=== PATIENT | female | born 1945 | race Caucasian/White ===

== ENCOUNTER → 2016-08-01 | Outpatient (REF) | payer OTHER ==
[~2016-08-01] MED LIST: /PANT40TA; ACET50TAOT PO; ACET65TA; COLA100C2; COUM1TAB17 PO; FERROUS GLUCONATE; FIBERCON; METAMUCIL; METO10TA2; NUCY50TA9 PO; PANT40TA2 PO; POLY150C5 PO; PROT20TA11 PO; TYLE500T78 PO; XARE15TA PO
[2016-08-01 18:38] LABS: INR 1.89
== END ==
LOC: M LABDRAW1 16:07
PROVIDERS: ATTEND Physician Assistant Medical
DX: I82.432 Acute embolism and thrombosis of left popliteal vein (principal)

== ENCOUNTER → 2016-08-14 | Outpatient (CLI) | payer OTHER ==
--- NOTE | 2016-08-14 21:06 | REP ---
Clinical: Shortness of breath. Technique: PA and lateral. Comparison: 04/01/2016. Findings: Mediastinum and cardiac silhouette are stable. Moderate hiatal hernia is again identified. Incompletely evaluated rounded opacity at the medial right lung base adjacent to the right cardiac silhouette requires correlation. Lung alvarado demonstrate chronic-appearing changes without obvious acute consolidation, effusion, or pneumothorax. Skeletal structures demonstrate age-related changes. Impression: Chronic stable changes. Subtle rounded opacity at the medial right lung base cannot be excluded and requires correlation. The mediastinum again suggests moderate hiatal hernia. Signed by Foreign Fernández MD 08/14/2016 08:57 P
--- NOTE | 2016-08-15 08:47 | REP ---
Ventilation-perfusion lung scan: History: History of pulmonary embolus. Comparison CT pulmonary angiogram April 01, 2016. This showed no evidence of pulmonary embolism. The prior study from May 28, 2015 showed evidence of a saddle embolus. Comparison is also made with today's chest x-ray. Technique: 1.0 mCi technetium 99m DTPA aerosol is utilized for the ventilation study and is followed by a 5.5 mCi intravenous dose of technetium-99m MAA for the perfusion study. Eight planar images are acquired for each portion of the exam. Findings: Ventilation study shows some central bronchial deposition of tracer and swallowed tracer in the esophagus and stomach and in the patient's known hiatal hernia. Mildly patchy ventilatory uptake is seen. On the perfusion scan, there are mild matched defects on the posterior view in the upper lobes bilaterally. No mismatched defect is seen. Impression: Low probability scan for pulmonary embolism. Signed by Chuckie You MD 08/15/2016 09:28 A
== END ==
LOC: M RAD 13:40
PROVIDERS: ATTEND Internal Medicine Cardiovascular Disease
DX: R91.8 Other nonspecific abnormal finding of lung field (principal); K44.9 Diaphragmatic hernia without obstruction or gangrene; Z86.711 Personal history of pulmonary embolism

== ENCOUNTER 2016-08-16 10:52 | Emergency (ER) | payer OTHER ==
[2016-08-16 11:40] LABS: INR 2.39
--- NOTE | 2016-08-16 11:45 | REP ---
CT brain without contrast: History: Trauma. Comparison CT study January 14, 2013. Findings: Digital lateral laboratory clerk radiograph is unremarkable. Bone window settings show no evidence of skull fracture or bony destructive lesion. There is vascular calcification in the distal carotid arteries bilaterally. Visualized paranasal sinuses are clear. No intraorbital abnormality is seen. No significant scalp hematoma is appreciated. On soft tissue window settings, there is mild diffuse cerebral atrophy. There is no evidence of intracranial hemorrhage. No mass, infarction, contusion, extra-axial fluid collection, or midline shift is seen. Impression: Mild diffuse atrophy and vascular calcification. No acute intracranial abnormality. Signed by Chuckie You MD 08/16/2016 08:11 P
[2016-08-16 13:34] LABS: ANION GAP 7 MEQ/L (8-16); BLOOD UREA NITROGEN 15 MG/DL (7-18); CALCIUM LEVEL 9.1 MG/DL (8.8-10.2); CARBON DIOXIDE LEVEL 29 MEQ/L (21-32); CHLORIDE LEVEL 105 MEQ/L (98-107); CREATININE FOR GFR 0.94 MG/DL (0.55-1.02); GLOMERULAR FILTRATION RATE > 60.0 (>39); GLUCOSE, FASTING 106 MG/DL (83-110); POTASSIUM SERUM 4.2 MEQ/L (3.5-5.1); SODIUM LEVEL 141 MEQ/L (136-145)
[2016-08-16] MEDS ORDERED: ISOVUE-370 76% 100ML VIAL (Q9967) As Ordered ONE (13:41)
--- NOTE | 2016-08-16 15:08 | REP ---
CT PULMONARY ANGIOGRAM: With IV contrast. HISTORY: Dyspnea, history of pulmonary embolus. COMPARISON STUDIES: April 01, 2016. Contrast dose: 75 mL of Isovue [address] TECHNIQUE: Helical scanning is acquired and overlapping 1.5 mm and contiguous 3 mm axial images are reformatted. In addition, a 3D work station is deployed to generate thick slab maximum intensity projection images in sagittal and coronal imaging projections. CT PULMONARY ANGIOGRAPHIC FINDINGS: There is good opacification of the pulmonary arterial tree and there is no CT evidence of pulmonary embolism. Thoracic aorta enhances homogeneously and is normal in caliber and contour. Atherosclerotic calcifications are seen but no evidence of aneurysm or dissection is noted. No pleural or pericardial effusion is seen. A moderate to large size hiatal hernia is again noted. No hilar or mediastinal mass or adenopathy is seen. There are some calcific lymph node granulomatous residuals in the pretracheal soft tissues. No pulmonary nodule or mass lesion is seen. Maximal intensity projection images show no evidence to suggest an embolus. IMPRESSION: No CT evidence of pulmonary embolism. Moderate to large hiatal hernia. Otherwise no acute disease. Signed by Chuckie You MD 08/16/2016 08:13 P
--- NOTE | 2016-08-16 15:37 | EDDOCDS ---
Nurse's Notes [facility] Name: Nicole Paul Age: 71 yrs Sex: Female : 1945 Arrival Date: 08/16/2016 Time: 10:52 Bed 14 Private MD: Chloe Clements PA-C. Diagnosis: Dyspnea-CT negative for diagnostic pathology;Contusion of nose;Abrasion of nose Presentation: 08/16 10:58 Presenting complaint:. mlb1 11:03 Presenting complaint: Patient states: Mechanical fall going upstairs on Sunday jo3 afternoon. Struck face and forehead on deck. Swelling today is worse and pt became concerned. Pt on Coumadin regime at home. Adult Sepsis Screening: The patient does not have new or worsening altered mentation. Patient's respiratory rate is less than 22. Systolic blood pressure is greater than 100. Patient has a qSOFA score of 0- Negative Sepsis Screen. Suicide/Homicide risk assessment- the patient denies having any suicidal and/or homicidal ideations and does not present with any other emotional, behavioral or mental health complaints. 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 Transition of care: patient was not received from another setting of care. 11:03 Acuity: ROXI Level 3 jo3 11:03 Method Of Arrival: Walkin/Carried/Asstd jo3 Triage Assessment: 11:08 General: Appears in no apparent distress, comfortable, Behavior is appropriate for age, jo3 cooperative, pleasant. Historical: - Allergies: NSAIDS; - Home Meds: 1. Protonix 40 mg Oral TbEC 1 tab once daily 2. Coumadin 7mg Oral once daily 7mg , Sun, Sun, Sun. 6mg Mon, Sun, Sat for Pulmonary Thromboembolism - PMHx: GERD; Pulmonary Embolism; Bleeding Ulcers; Arthritis; - PSHx: left hip replacement; Hernia repair; Appendectomy; Hysterectomy; Cervical Fusion; Bladder suspension; Vulvectomy; Jugular Filter; - The history from nurses notes was reviewed: and I agree with what is documented. - Social history: Smoking status: Patient states former smoker of tobacco. No barriers to communication noted, The patient speaks fluent [place], Speaks appropriately for age. - : The pt / caregiver states he / she is on anticoagulants: coumadin. Home medication list is obtained from the patient. - Hospitalizations: : No recent hospitalization is reported. - Exposure Risk Screening:: None identified. - Immunization history:: All immunizations up-to-date. - Family history: Not pertinent. - Social history:: the patient is a former smoker, the patient does not drink alcohol. Screenin:01 Screening information is obtained from the patient. Fall risk: No risks identified. jo3 Assistance ADL's: requires no assistance with activities of daily living. Abuse/DV Screen: The patient / caregiver reports he/she is: not in a situation that causes fear, pain or injury. Nutritional screening: No deficits noted. Advance Directives: There is no active DNR order. home support is adequate. Assessment: 11:15 General: Appears in no apparent distress, comfortable, Behavior is appropriate for age, jo3 cooperative, pleasant. 11:15 Neurological: Level of Consciousness is awake, alert, Oriented to person, place, time. jo3 Neurological: Industrial Design Intern are equal bilaterally Moves all extremities. Gait is steady, Speech is normal, Facial symmetry appears normal, Pupils are PERRLA. Cardiovascular: No deficits noted. Respiratory: Airway is patent Respiratory effort is even, unlabored. Derm: Skin is pink, warm & dry. 12:15 Reassessment: Patient appears in no apparent distress at this time. No significant jo3 changes noted at this time. Awaiting results for disposition. Aware of plan of care . 13:15 Reassessment: Patient appears in no apparent distress at this time. General: Appears jo3 comfortable, Behavior is appropriate for age, cooperative, pleasant. General: SL placed for CT angio. Pt aware of plan of care . Neurological: No deficits noted. Respiratory: Airway is patent Respiratory effort is even, unlabored. 14:10 General: Appears in no apparent distress, comfortable, Behavior is appropriate for age, jo3 cooperative. Neurological: No deficits noted. Level of Consciousness is awake, alert, Oriented to person, place, time. Cardiovascular: No deficits noted. Respiratory: Airway is patent Respiratory effort is even, unlabored. 15:14 Reassessment: Patient appears in no apparent distress at this time. No changes noted at jo3 this time. Awaiting results for disposition. Aware of plan of care . Vital Signs: 10:53 BP 191 / 110; Pulse 83; Resp 18; Temp 98.0(O); Pulse Ox 97% on R/A; Weight 88.9 kg (R); elp Height 5 ft. 6 in. (167.64 cm) (R); Pain 3/10; 12:42 BP 168 / 81; Pulse 71; Resp 18; Temp 98.0(O); Pulse Ox 97% on R/A; Pain 0/10; nb2 15:21 BP 156 / 74 (auto/); Pulse 70; Resp 18; Temp 97.9(TE); Pulse Ox 98% on R/A; jo3 10:53 Body Mass Index 31.63 (88.90 kg, 167.64 cm) elp Vitals: 10:53 Log In Time: August 16, 2016 at 10:50. elp 10:55 RN notified that patient meets Red Flag criteria. elp ED Course: 10:53 Patient visited by Mary Zimmerman PCA. elp 10:53 Chloe Clements is Private Physician. elp 10:53 Patient moved to Waiting elp 10:55 Patient visited by Mary Zimmerman PCA. elp 10:55 Patient moved to 14 elp 10:57 Patient visited by Darrell Ponce RN. mlb1 11:05 Triage Initiated jo3 11:09 Patient visited by Lakeisha Freire RN. jo3 11:27 Tyree Shaw MD is Attending Physician. pc 11:42 Patient visited by Ben Moreno PCA. jlf 11:48 Patient visited by Tyree Shaw MD. pc 12:09 Patient visited by Lakeisha Freire RN. jo3 12:23 CT Head Without Contrast Returned. EDMS 12:42 Patient visited by Summer Arriaga. nb2 12:57 MED Profile Sent. jo3 12:59 Inserted saline lock: 18 gauge in left antecubital area. jo3 13:01 The patient / caregiver is instructed regarding the plan of care and ED course. jo3 13:02 Patient visited by Lakeisha Freire RN. jo3 13:30 Patient visited by Lakeisha Freire RN. jo3 14:06 Patient visited by Ben Moreno PCA. jlf 14:55 Patient visited by Ben Moreno PCA. jlf 15:04 Patient visited by Lakeisha Freire RN. jo3 15:15 Chloe Clements is Referral Physician. pc 15:15 Eren Ellis is Referral Physician. pc 15:15 Patient visited by Lakeisha Freire RN. jo3 15:21 Discontinued IV lock intact, bleeding controlled, pressure dressing applied, No jo3 redness/swelling at site. No procedures done that require assistance. 15:29 [facility] [place] was scanned into [employer] and attached to record. gjb Order Results: Lab Order: INR; SPEC'M 08/16/16 11:20 Test: PROTHROMBIN TIME; Value: 26.1; Range: 12.3-14.5; Abnormal: Above high normal; Units: SECONDS; Status: F Test: INR; Value: 2.39; Status: F Test Note: ; THERAPUTIC HUMAN INR VALUES INDICATIONS NORMAL RANGES PROPHYLAXIS/TREATMENT OF: VENOUS THROMBOSIS 2.0-3.0 PULMONARY EMBOLISM 2.0-3.0 PREVENTION OF SYSTEMIC EMBOLISM FROM: TISSUE HEART VALVES 2.0-3.0 ACUTE MYOCARDIAL INFARCTION 2.0-3.0 VALVULAR HEART DISEASE 2.0-3.0 ATRIAL FIBRILLATION 2.0-3.0 MECHANICAL VALVES(HIGH RISK) 2.5-3.5 RECURRENT MYOCARDIAL INFARCTION 2.5-3.5 Lab Order: MED Profile; SPEC'M 08/16/16 12:52 Test: GLUCOSE, FASTING; Value: 106; Range: 83-110; Units: MG/DL; Status: F Test: BLOOD UREA NITROGEN; Value: 15; Range: 7-18; Units: MG/DL; Status: F Test: CREATININE FOR GFR; Value: 0.94; Range: 0.55-1.02; Units: MG/DL; Status: F Test: GLOMERULAR FILTRATION RATE; Value: > 60.0; Range: >39; Status: F Test: SODIUM LEVEL; Value: 141; Range: 136-145; Units: MEQ/L; Status: F Test: POTASSIUM SERUM; Value: 4.2; Range: 3.5-5.1; Units: MEQ/L; Status: F Test: CHLORIDE LEVEL; Value: 105; Range: 98-107; Units: MEQ/L; Status: F Test: CARBON DIOXIDE LEVEL; Value: 29; Range: 21-32; Units: MEQ/L; Status: F Test: ANION GAP; Value: 7; Range: 8-16; Abnormal: Below low normal; Units: MEQ/L; Status: F Test: CALCIUM LEVEL; Value: 9.1; Range: 8.8-10.2; Units: MG/DL; Status: F Test Note: ; Units are mL/min/1.73 m2 Chronic Kidney Disease Staging per NKF: Stage I & II GFR >=60 Normal to Mildly Decreased Stage III GFR 30-59 Moderately Decreased Stage IV GFR 15-29 Severely Decreased Stage V GFR <15 Very Little GFR Left ESRD GFR <15 on [facility] Radiology Order: CT Head Without Contrast Test: CT Head Without Contrast REASON FOR EXAMINATION: Trauma; CT brain without contrast:; ; History: Trauma.; ; Comparison CT study January 14, 2013.; ; Findings: Digital lateral continuum of care manager radiograph is unremarkable. Bone window; settings show no evidence of skull fracture or bony destructive lesion. There is; vascular calcification in the distal carotid arteries bilaterally. Visualized; paranasal sinuses are clear. No intraorbital abnormality is seen. No; significant scalp hematoma is appreciated.; ; On soft tissue window settings, there is mild diffuse cerebral atrophy. There is; no evidence of intracranial hemorrhage. No mass, infarction, contusion,; extra-axial fluid collection, or midline shift is seen.; ; Impression:; ; Mild diffuse atrophy and vascular calcification. No acute intracranial; abnormality.; ; ; ; ; Unreviewed; Outcome: 15:15 Discharge ordered by Provider. 15:30 Discharge Assessment: Patient awake, alert and oriented x 3. No cognitive and/or jo3 functional deficits noted. Patient verbalized understanding of disposition instructions. patient administered narcotics - no. The following High Risk Discharge criteria are identified: None. Discharged to home ambulatory, with family. Condition: stable. Discharge instructions given to patient, Instructed on discharge instructions, follow up and referral plans. Demonstrated understanding of instructions, Pt was receptive of discharge instructions/ teaching. CT Study completed. Property sent home with patient. 15:36 Patient left the ED. jo3 Signatures: Dispatcher [employer] EDMS Tyree Shaw MD MD pc Barney, Michael B RN RN mlb1 Lakeisha Freire RN RN jo3 Mary Zimmerman, FIRE WATCHER FIRE WATCHER Ben Mclaughlin, FIRE WATCHER FIRE WATCHER jlf Franco, Nargis gjb Baart, Summer nb2 Corrections: (The following items were deleted from the chart) 12:09 12:08 General: Appears jo3 jo3 MTDD
--- NOTE | 2016-08-16 15:37 | EDDOCDS ---
Physician Documentation [facility] Name: Nicole Paul Age: 71 yrs Sex: Female : 1945 Arrival Date: 08/16/2016 Time: 10:52 Bed 14 Private MD: Chloe Clements PA-C. Disposition: 08/16 15:13 Critical Care: Critical care not applicable. pc Disposition: 08/16/16 15:15 Discharged to Home/Self Care. Impression: Dyspnea - CT negative for diagnostic pathology, Contusion of nose, Abrasion of nose. - Condition is Stable. - Discharge Instructions: Contusion, Shortness of Breath. - Medication Reconciliation, Local Pharmacy Hours form. - Follow up: Chloe Clements; When: As previously arranged; Reason: Recheck today's complaints, Continuance of care. Follow up: Eren Ellis; When: Call to arrange an appointment; Reason: To establish care. - Problem is new. - Symptoms have improved. HPI: 12:22 This 71 yrs old Female presents to ER via Walkin/Carried/Asstd with pc complaints of Fall Injury. 12:22 The history is obtained from the patient. She slipped on icy steps 2 days ago, striking pc her nose on the steps. She is on Coumadin for a PE from 2014. She denies any LOC and only decided to come today because her left upper eyelid was swollen. 12:27 The patient has not experienced similar symptoms in the past. The patient has been pc recently seen by a wastewater treatment supervisor. Historical: - Allergies: NSAIDS; - Home Meds: 1. Protonix 40 mg Oral TbEC 1 tab once daily 2. Coumadin 7mg Oral once daily 7mg , Sun, Sun, Sun. 6mg Mon, Wed, Sat for Pulmonary Thromboembolism - PMHx: GERD; Pulmonary Embolism; Bleeding Ulcers; Arthritis; - PSHx: left hip replacement; Hernia repair; Appendectomy; Hysterectomy; Cervical Fusion; Bladder suspension; Vulvectomy; Jugular Filter; - The history from nurses notes was reviewed: and I agree with what is documented. - Social history: Smoking status: Patient states former smoker of tobacco. No barriers to communication noted, The patient speaks fluent Beninese, Speaks appropriately for age. - : The pt / caregiver states he / she is on anticoagulants: coumadin. Home medication list is obtained from the patient. - Hospitalizations: : No recent hospitalization is reported. - Exposure Risk Screening:: None identified. - Immunization history:: All immunizations up-to-date. - Family history: Not pertinent. - Social history:: the patient is a former smoker, the patient does not drink alcohol. ROS: 12:27 CVS/Resp: She has had SOB for many months to one year, following a PE in 2014. pc She has had negative CTs and VQs in the past 3 months. She had a stress test done 2 weeks ago that, per Dr. Barrera who was contacted, was completely normal and she had an EF of 80%. 12:27 All systems are negative except as listed. Exam: 12:27 General Appearance: no acute distress, alert. pc 12:27 EENT: healing laceration/abrasion to bridge of nose without bony pain. There is gravitational swelling to right and left inner canthus. No nasal septal hematoma. No maxillary pain. 12:27 Neck: The exam reveals no acute abnormalities. ROM is normal and painless. No nuchal rigidity is noted.. Nexus criteria for suspected c-spine injury is negative. 12:27 Respiratory: no respiratory distress, normal breath sounds, chest non-tender. 12:27 CVS: regular pulse rate, regular rhythm, normal S1 and S2, no murmurs, strong peripheral pulses. 12:27 Abdomen: soft, non-tender, no organomegaly, normal bowel sounds. 12:27 Back: normal inspection. 12:27 Skin: skin color is normal, warm, dry. 12:27 Extremities: The extremities have a grossly normal appearance, are non-tender, without acute ROM abnormalities. 12:27 Neuro: oriented x 3, cranial nerves normal as tested, no motor deficits, no sensory deficits. Vital Signs: 10:53 BP 191 / 110; Pulse 83; Resp 18; Temp 98.0(O); Pulse Ox 97% on R/A; Weight 88.9 kg / elp 195.99 lbs (R); Height 5 ft. 6 in. (167.64 cm) (R); Pain 3/10; 12:42 BP 168 / 81; Pulse 71; Resp 18; Temp 98.0(O); Pulse Ox 97% on R/A; Pain 0/10; nb2 15:21 BP 156 / 74 (auto/); Pulse 70; Resp 18; Temp 97.9(TE); Pulse Ox 98% on R/A; jo3 10:53 Body Mass Index 31.63 (88.90 kg, 167.64 cm) elp MDM: 11:11 CT Head Without Contrast Ordered. EDMS 11:12 INR Ordered. EDMS 11:48 INR Reviewed. pc 12:27 Differential Diagnosis: HI on Coumadin; nasal contusion and abrasion; chronic dyspnea pc with normal vitals and exam in a former smoker. Plan: CT, labs. Data reviewed: old medical records, vital signs, nurses notes, lab test results, all radiology studies and available results. Test interpretation: LAB - all labs as ordered have been reviewed, interpreted and considered in the overall management of the clinical presentation; interpreted by Radiologist and personally reviewed, Head CT; no acute disease. The patient has been re-examined and re-evaluated. The clinical presentation did not require any ED treatment or interventions. Physician consultation: Dr. Reinier Barrera regarding patient's condition, and he relayed the stress test results as documented above. 12:38 IV Saline Lock ordered. pc 12:39 MED Profile Ordered. EDMS 12:39 CT Chest Angio R/O PE Ordered. EDMS 13:36 MED Profile Reviewed. pc 13:36 CT Head Without Contrast Reviewed. pc 15:13 Test interpretation: interpreted by Radiologist and personally reviewed, Chest CT; pc large hiatal hernia, else nad. Disposition: The historical points, examination findings, and any diagnostic results supporting the provided diagnosis, were discussed with the patient or legal guardian. The need for outpatient follow up with the provider listed on their discharge instructions was discussed. They were encouraged to return to [facility], or the nearest ED, if symptoms worsen/persist, or for any other questions/concerns. 15:17 Financial registration complete. luke 15:29 [facility] [place] Agreement was scanned into [employer] and attached to record. luke Signatures: Dispatcher [employer] EDMO Tyree Shaw MD MD pc Helmerci, Jennifer, RN RN Nargis Flanagan The chart was reviewed and I authenticate all verbal orders and agree with the evaluation and treatment provided.Corrections: (The following items were deleted from the chart) 12:28 12:22 She slipped on icy steps 2 days ago, striking her nose on the steps. She is on pc Coumadin for a PE from 2014. She denies any LOC and only decided to come today because pc Attachments: 15:29 [facility] Payment Agreement luke MTDD
--- NOTE | 2016-08-18 16:37 | EDDOCDS ---
Physician Documentation [facility] Name: Nicole Paul Age: 71 yrs Sex: Female : 1945 Arrival Date: 08/16/2016 Time: 10:52 Bed 14 Private MD: Chloe Clements PA-C. Disposition: 08/16 15:13 Critical Care: Critical care not applicable. pc Disposition: 08/16/16 15:15 Discharged to Home/Self Care. Impression: Dyspnea - CT negative for diagnostic pathology, Contusion of nose, Abrasion of nose. - Condition is Stable. - Discharge Instructions: Contusion, Shortness of Breath. - Medication Reconciliation, Local Pharmacy Hours form. - Follow up: Chloe Clements; When: As previously arranged; Reason: Recheck today's complaints, Continuance of care. Follow up: Eren Ellis; When: Call to arrange an appointment; Reason: To establish care. - Problem is new. - Symptoms have improved. HPI: 12:22 This 71 yrs old Female presents to ER via Walkin/Carried/Asstd with pc complaints of Fall Injury. 12:22 The history is obtained from the patient. She slipped on icy steps 2 days ago, striking pc her nose on the steps. She is on Coumadin for a PE from 2014. She denies any LOC and only decided to come today because her left upper eyelid was swollen. 12:27 The patient has not experienced similar symptoms in the past. The patient has been pc recently seen by a head counselor. Historical: - Allergies: NSAIDS; - Home Meds: 1. Protonix 40 mg Oral TbEC 1 tab once daily 2. Coumadin 7mg Oral once daily 7mg , Sun, Sun, Sun. 6mg Mon, Wed, Sat for Pulmonary Thromboembolism - PMHx: GERD; Pulmonary Embolism; Bleeding Ulcers; Arthritis; - PSHx: left hip replacement; Hernia repair; Appendectomy; Hysterectomy; Cervical Fusion; Bladder suspension; Vulvectomy; Jugular Filter; - The history from nurses notes was reviewed: and I agree with what is documented. - Social history: Smoking status: Patient states former smoker of tobacco. No barriers to communication noted, The patient speaks fluent Estonian, Speaks appropriately for age. - : The pt / caregiver states he / she is on anticoagulants: coumadin. Home medication list is obtained from the patient. - Hospitalizations: : No recent hospitalization is reported. - Exposure Risk Screening:: None identified. - Immunization history:: All immunizations up-to-date. - Family history: Not pertinent. - Social history:: the patient is a former smoker, the patient does not drink alcohol. ROS: 12:27 CVS/Resp: She has had SOB for many months to one year, following a PE in 2014. pc She has had negative CTs and VQs in the past 3 months. She had a stress test done 2 weeks ago that, per Dr. Barrera who was contacted, was completely normal and she had an EF of 80%. 12:27 All systems are negative except as listed. Exam: 12:27 General Appearance: no acute distress, alert. pc 12:27 EENT: healing laceration/abrasion to bridge of nose without bony pain. There is gravitational swelling to right and left inner canthus. No nasal septal hematoma. No maxillary pain. 12:27 Neck: The exam reveals no acute abnormalities. ROM is normal and painless. No nuchal rigidity is noted.. Nexus criteria for suspected c-spine injury is negative. 12:27 Respiratory: no respiratory distress, normal breath sounds, chest non-tender. 12:27 CVS: regular pulse rate, regular rhythm, normal S1 and S2, no murmurs, strong peripheral pulses. 12:27 Abdomen: soft, non-tender, no organomegaly, normal bowel sounds. 12:27 Back: normal inspection. 12:27 Skin: skin color is normal, warm, dry. 12:27 Extremities: The extremities have a grossly normal appearance, are non-tender, without acute ROM abnormalities. 12:27 Neuro: oriented x 3, cranial nerves normal as tested, no motor deficits, no sensory deficits. Vital Signs: 10:53 BP 191 / 110; Pulse 83; Resp 18; Temp 98.0(O); Pulse Ox 97% on R/A; Weight 88.9 kg / elp 195.99 lbs (R); Height 5 ft. 6 in. (167.64 cm) (R); Pain 3/10; 12:42 BP 168 / 81; Pulse 71; Resp 18; Temp 98.0(O); Pulse Ox 97% on R/A; Pain 0/10; nb2 15:21 BP 156 / 74 (auto/); Pulse 70; Resp 18; Temp 97.9(TE); Pulse Ox 98% on R/A; jo3 10:53 Body Mass Index 31.63 (88.90 kg, 167.64 cm) elp MDM: 11:11 CT Head Without Contrast Ordered. EDMS 11:12 INR Ordered. EDMS 11:48 INR Reviewed. pc 12:27 Differential Diagnosis: HI on Coumadin; nasal contusion and abrasion; chronic dyspnea pc with normal vitals and exam in a former smoker. Plan: CT, labs. Data reviewed: old medical records, vital signs, nurses notes, lab test results, all radiology studies and available results. Test interpretation: LAB - all labs as ordered have been reviewed, interpreted and considered in the overall management of the clinical presentation; interpreted by Radiologist and personally reviewed, Head CT; no acute disease. The patient has been re-examined and re-evaluated. The clinical presentation did not require any ED treatment or interventions. Physician consultation: Dr. Reinier Barrera regarding patient's condition, and he relayed the stress test results as documented above. 12:38 IV Saline Lock ordered. pc 12:39 MED Profile Ordered. EDMS 12:39 CT Chest Angio R/O PE Ordered. EDMS 13:36 MED Profile Reviewed. pc 13:36 CT Head Without Contrast Reviewed. pc 15:13 Test interpretation: interpreted by Radiologist and personally reviewed, Chest CT; pc large hiatal hernia, else nad. Disposition: The historical points, examination findings, and any diagnostic results supporting the provided diagnosis, were discussed with the patient or legal guardian. The need for outpatient follow up with the provider listed on their discharge instructions was discussed. They were encouraged to return to [facility], or the nearest ED, if symptoms worsen/persist, or for any other questions/concerns. 15:17 Financial registration complete. luke 15:29 [place] [place] Agreement was scanned into [employer] and attached to record. luke Signatures: Dispatcher [employer] EDVA Tyree Shaw MD MD pc Helmerci, Jennifer, RN RN Nargis Flanagan The chart was reviewed and I authenticate all verbal orders and agree with the evaluation and treatment provided.Corrections: (The following items were deleted from the chart) 12:28 12:22 She slipped on icy steps 2 days ago, striking her nose on the steps. She is on pc Coumadin for a PE from 2014. She denies any LOC and only decided to come today because pc Attachments: 15:29 [facility] Payment Agreement luke Chart Complete MTDD
--- NOTE | 2016-08-18 16:37 | EDDOCDS ---
Nurse's Notes [facility] Name: Nicoel Paul Age: 71 yrs Sex: Female : 1945 Arrival Date: 08/16/2016 Time: 10:52 Bed 14 Private MD: Chloe Clements PA-C. Diagnosis: Dyspnea-CT negative for diagnostic pathology;Contusion of nose;Abrasion of nose Presentation: 08/16 10:58 Presenting complaint:. mlb1 11:03 Presenting complaint: Patient states: Mechanical fall going upstairs on Sunday jo3 afternoon. Struck face and forehead on deck. Swelling today is worse and pt became concerned. Pt on Coumadin regime at home. Adult Sepsis Screening: The patient does not have new or worsening altered mentation. Patient's respiratory rate is less than 22. Systolic blood pressure is greater than 100. Patient has a qSOFA score of 0- Negative Sepsis Screen. Suicide/Homicide risk assessment- the patient denies having any suicidal and/or homicidal ideations and does not present with any other emotional, behavioral or mental health complaints. Status: Patient is not a director of casework services or dependent. Transition of care: patient was not received from another setting of care. 11:03 Acuity: ROXI Level 3 jo3 11:03 Method Of Arrival: Walkin/Carried/Asstd jo3 Triage Assessment: 11:08 General: Appears in no apparent distress, comfortable, Behavior is appropriate for age, jo3 cooperative, pleasant. Historical: - Allergies: NSAIDS; - Home Meds: 1. Protonix 40 mg Oral TbEC 1 tab once daily 2. Coumadin 7mg Oral once daily 7mg , Sun, Sun, Sun. 6mg Mon, Sun, Sat for Pulmonary Thromboembolism - PMHx: GERD; Pulmonary Embolism; Bleeding Ulcers; Arthritis; - PSHx: left hip replacement; Hernia repair; Appendectomy; Hysterectomy; Cervical Fusion; Bladder suspension; Vulvectomy; Jugular Filter; - The history from nurses notes was reviewed: and I agree with what is documented. - Social history: Smoking status: Patient states former smoker of tobacco. No barriers to communication noted, The patient speaks fluent Serbian, Speaks appropriately for age. - : The pt / caregiver states he / she is on anticoagulants: coumadin. Home medication list is obtained from the patient. - Hospitalizations: : No recent hospitalization is reported. - Exposure Risk Screening:: None identified. - Immunization history:: All immunizations up-to-date. - Family history: Not pertinent. - Social history:: the patient is a former smoker, the patient does not drink alcohol. Screenin:01 Screening information is obtained from the patient. Fall risk: No risks identified. jo3 Assistance ADL's: requires no assistance with activities of daily living. Abuse/DV Screen: The patient / caregiver reports he/she is: not in a situation that causes fear, pain or injury. Nutritional screening: No deficits noted. Advance Directives: There is no active DNR order. home support is adequate. Assessment: 11:15 General: Appears in no apparent distress, comfortable, Behavior is appropriate for age, jo3 cooperative, pleasant. 11:15 Neurological: Level of Consciousness is awake, alert, Oriented to person, place, time. jo3 Neurological: Placing Judge are equal bilaterally Moves all extremities. Gait is steady, Speech is normal, Facial symmetry appears normal, Pupils are PERRLA. Cardiovascular: No deficits noted. Respiratory: Airway is patent Respiratory effort is even, unlabored. Derm: Skin is pink, warm & dry. 12:15 Reassessment: Patient appears in no apparent distress at this time. No significant jo3 changes noted at this time. Awaiting results for disposition. Aware of plan of care . 13:15 Reassessment: Patient appears in no apparent distress at this time. General: Appears jo3 comfortable, Behavior is appropriate for age, cooperative, pleasant. General: SL placed for CT angio. Pt aware of plan of care . Neurological: No deficits noted. Respiratory: Airway is patent Respiratory effort is even, unlabored. 14:10 General: Appears in no apparent distress, comfortable, Behavior is appropriate for age, jo3 cooperative. Neurological: No deficits noted. Level of Consciousness is awake, alert, Oriented to person, place, time. Cardiovascular: No deficits noted. Respiratory: Airway is patent Respiratory effort is even, unlabored. 15:14 Reassessment: Patient appears in no apparent distress at this time. No changes noted at jo3 this time. Awaiting results for disposition. Aware of plan of care . Vital Signs: 10:53 BP 191 / 110; Pulse 83; Resp 18; Temp 98.0(O); Pulse Ox 97% on R/A; Weight 88.9 kg (R); elp Height 5 ft. 6 in. (167.64 cm) (R); Pain 3/10; 12:42 BP 168 / 81; Pulse 71; Resp 18; Temp 98.0(O); Pulse Ox 97% on R/A; Pain 0/10; nb2 15:21 BP 156 / 74 (auto/); Pulse 70; Resp 18; Temp 97.9(TE); Pulse Ox 98% on R/A; jo3 10:53 Body Mass Index 31.63 (88.90 kg, 167.64 cm) elp Vitals: 10:53 Log In Time: August 16, 2016 at 10:50. elp 10:55 RN notified that patient meets Red Flag criteria. elp ED Course: 10:53 Patient visited by Mary Zimmerman PCA. elp 10:53 Chloe Clements is Private Physician. elp 10:53 Patient moved to Waiting elp 10:55 Patient visited by Mary Zimmerman PCA. elp 10:55 Patient moved to 14 elp 10:57 Patient visited by Darrell Ponce RN. mlb1 11:05 Triage Initiated jo3 11:09 Patient visited by Lakeisha Freire RN. jo3 11:27 Tyree Shaw MD is Attending Physician. pc 11:42 Patient visited by Ben Moreno PCA. jlf 11:48 Patient visited by Tyree Shaw MD. pc 12:09 Patient visited by Lakeisha Freire RN. jo3 12:23 CT Head Without Contrast Returned. EDMS 12:42 Patient visited by Summer Arriaga. nb2 12:57 MED Profile Sent. jo3 12:59 Inserted saline lock: 18 gauge in left antecubital area. jo3 13:01 The patient / caregiver is instructed regarding the plan of care and ED course. jo3 13:02 Patient visited by Lakeisha Freire RN. jo3 13:30 Patient visited by Lakeisha Freire RN. jo3 14:06 Patient visited by Ben Moreno PCA. jlf 14:55 Patient visited by Ben Moreno PCA. jlf 15:04 Patient visited by Lakeisha Freire RN. jo3 15:15 Chloe Clements is Referral Physician. pc 15:15 Eren Ellis is Referral Physician. pc 15:15 Patient visited by Lakeisha Freire RN. jo3 15:21 Discontinued IV lock intact, bleeding controlled, pressure dressing applied, No jo3 redness/swelling at site. No procedures done that require assistance. 15:29 [facility] [place] Payment Agreement was scanned into [employer] and attached to record. gjb 15:54 CT Chest Angio R/O PE Returned. EDMS 20:41 CT Head Without Contrast Returned. EDMS Order Results: Lab Order: INR; SPEC'M 08/16/16 11:20 Test: PROTHROMBIN TIME; Value: 26.1; Range: 12.3-14.5; Abnormal: Above high normal; Units: SECONDS; Status: F Test: INR; Value: 2.39; Status: F Test Note: ; THERAPUTIC HUMAN INR VALUES INDICATIONS NORMAL RANGES PROPHYLAXIS/TREATMENT OF: VENOUS THROMBOSIS 2.0-3.0 PULMONARY EMBOLISM 2.0-3.0 PREVENTION OF SYSTEMIC EMBOLISM FROM: TISSUE HEART VALVES 2.0-3.0 ACUTE MYOCARDIAL INFARCTION 2.0-3.0 VALVULAR HEART DISEASE 2.0-3.0 ATRIAL FIBRILLATION 2.0-3.0 MECHANICAL VALVES(HIGH RISK) 2.5-3.5 RECURRENT MYOCARDIAL INFARCTION 2.5-3.5 Lab Order: MED Profile; SPEC'M 08/16/16 12:52 Test: GLUCOSE, FASTING; Value: 106; Range: 83-110; Units: MG/DL; Status: F Test: BLOOD UREA NITROGEN; Value: 15; Range: 7-18; Units: MG/DL; Status: F Test: CREATININE FOR GFR; Value: 0.94; Range: 0.55-1.02; Units: MG/DL; Status: F Test: GLOMERULAR FILTRATION RATE; Value: > 60.0; Range: >39; Status: F Test: SODIUM LEVEL; Value: 141; Range: 136-145; Units: MEQ/L; Status: F Test: POTASSIUM SERUM; Value: 4.2; Range: 3.5-5.1; Units: MEQ/L; Status: F Test: CHLORIDE LEVEL; Value: 105; Range: 98-107; Units: MEQ/L; Status: F Test: CARBON DIOXIDE LEVEL; Value: 29; Range: 21-32; Units: MEQ/L; Status: F Test: ANION GAP; Value: 7; Range: 8-16; Abnormal: Below low normal; Units: MEQ/L; Status: F Test: CALCIUM LEVEL; Value: 9.1; Range: 8.8-10.2; Units: MG/DL; Status: F Test Note: ; Units are mL/min/1.73 m2 Chronic Kidney Disease Staging per NKF: Stage I & II GFR >=60 Normal to Mildly Decreased Stage III GFR 30-59 Moderately Decreased Stage IV GFR 15-29 Severely Decreased Stage V GFR <15 Very Little GFR Left ESRD GFR <15 on METAL MOULDER'S ASSISTANT Radiology Order: CT Head Without Contrast Test: CT Head Without Contrast REASON FOR EXAMINATION: Trauma; CT brain without contrast:; ; History: Trauma.; ; Comparison CT study January 14, 2013.; ; Findings: Digital lateral commission clerk radiograph is unremarkable. Bone window; settings show no evidence of skull fracture or bony destructive lesion. There is; vascular calcification in the distal carotid arteries bilaterally. Visualized; paranasal sinuses are clear. No intraorbital abnormality is seen. No; significant scalp hematoma is appreciated.; ; On soft tissue window settings, there is mild diffuse cerebral atrophy. There is; no evidence of intracranial hemorrhage. No mass, infarction, contusion,; extra-axial fluid collection, or midline shift is seen.; ; Impression:; ; Mild diffuse atrophy and vascular calcification. No acute intracranial; abnormality.; ; ; Signed by; Chuckie You MD 08/16/2016 08:11 P; Radiology Order: CT Chest Angio R/O PE Test: CT Chest Angio R/O PE REASON FOR EXAMINATION: dyspnea, hx of PE; CT PULMONARY ANGIOGRAM:; ; With IV contrast.; ; HISTORY: Dyspnea, history of pulmonary embolus.; ; COMPARISON STUDIES: April 01, 2016.; ; Contrast dose: 75 mL of Isovue 370 are administered intravenously.; ; CT TECHNIQUE: Helical scanning is acquired and overlapping 1.5 mm and contiguous; 3 mm axial images are reformatted. In addition, a 3D work station is deployed to; generate thick slab maximum intensity projection images in sagittal and coronal; imaging projections.; ; CT PULMONARY ANGIOGRAPHIC FINDINGS: There is good opacification of the pulmonary; arterial tree and there is no CT evidence of pulmonary embolism. Thoracic aorta; enhances homogeneously and is normal in caliber and contour. Atherosclerotic; calcifications are seen but no evidence of aneurysm or dissection is noted. No; pleural or pericardial effusion is seen. A moderate to large size hiatal hernia; is again noted. No hilar or mediastinal mass or adenopathy is seen. There are; some calcific lymph node granulomatous residuals in the pretracheal soft tissues.; No pulmonary nodule or mass lesion is seen. Maximal intensity projection images; show no evidence to suggest an embolus.; ; IMPRESSION: No CT evidence of pulmonary embolism. Moderate to large hiatal; hernia. Otherwise no acute disease.; ; ; Signed by; Chuckie You MD 08/16/2016 08:13 P; Outcome: 15:15 Discharge ordered by Provider. pc 15:30 Discharge Assessment: Patient awake, alert and oriented x 3. No cognitive and/or jo3 functional deficits noted. Patient verbalized understanding of disposition instructions. patient administered narcotics - no. The following High Risk Discharge criteria are identified: None. Discharged to home ambulatory, with family. Condition: stable. Discharge instructions given to patient, Instructed on discharge instructions, follow up and referral plans. Demonstrated understanding of instructions, Pt was receptive of discharge instructions/ teaching. CT Study completed. Property sent home with patient. 15:36 Patient left the ED. jo3 Signatures: Dispatcher [employer] EDMS Tyree Shaw MD MD pc Barney, Michael B RN RN mlLakeisha Thakkar RN RN jo3 Mary Zimmerman, PROMOTIONS INTERN PROMOTIONS INTERN Ben Mclaughlin, PROMOTIONS INTERN PROMOTIONS INTERN Nargis Garcia Nicole nb2 Corrections: (The following items were deleted from the chart) 12:09 12:08 General: Appears jo3 jo3 Chart Complete MTDD
--- NOTE | 2016-08-18 16:37 | EDDOCDS ---
Physician Documentation [facility] Name: Nicole Paul Age: 71 yrs Sex: Female : 1945 Arrival Date: 08/16/2016 Time: 10:52 Bed 14 Private MD: Chloe Clements PA-C. Disposition: 08/16 15:13 Critical Care: Critical care not applicable. pc Disposition: 08/16/16 15:15 Discharged to Home/Self Care. Impression: Dyspnea - CT negative for diagnostic pathology, Contusion of nose, Abrasion of nose. - Condition is Stable. - Discharge Instructions: Contusion, Shortness of Breath. - Medication Reconciliation, Local Pharmacy Hours form. - Follow up: Chloe Clements; When: As previously arranged; Reason: Recheck today's complaints, Continuance of care. Follow up: Eren Ellis; When: Call to arrange an appointment; Reason: To establish care. - Problem is new. - Symptoms have improved. HPI: 12:22 This 71 yrs old Female presents to ER via Walkin/Carried/Asstd with pc complaints of Fall Injury. 12:22 The history is obtained from the patient. She slipped on icy steps 2 days ago, striking pc her nose on the steps. She is on Coumadin for a PE from 2014. She denies any LOC and only decided to come today because her left upper eyelid was swollen. 12:27 The patient has not experienced similar symptoms in the past. The patient has been pc recently seen by a refund clerk. Historical: - Allergies: NSAIDS; - Home Meds: 1. Protonix 40 mg Oral TbEC 1 tab once daily 2. Coumadin 7mg Oral once daily 7mg , Sun, Sun, Sun. 6mg Mon, Wed, Sat for Pulmonary Thromboembolism - PMHx: GERD; Pulmonary Embolism; Bleeding Ulcers; Arthritis; - PSHx: left hip replacement; Hernia repair; Appendectomy; Hysterectomy; Cervical Fusion; Bladder suspension; Vulvectomy; Jugular Filter; - The history from nurses notes was reviewed: and I agree with what is documented. - Social history: Smoking status: Patient states former smoker of tobacco. No barriers to communication noted, The patient speaks fluent Tajik, Speaks appropriately for age. - : The pt / caregiver states he / she is on anticoagulants: coumadin. Home medication list is obtained from the patient. - Hospitalizations: : No recent hospitalization is reported. - Exposure Risk Screening:: None identified. - Immunization history:: All immunizations up-to-date. - Family history: Not pertinent. - Social history:: the patient is a former smoker, the patient does not drink alcohol. ROS: 12:27 CVS/Resp: She has had SOB for many months to one year, following a PE in 2014. pc She has had negative CTs and VQs in the past 3 months. She had a stress test done 2 weeks ago that, per Dr. Barrera who was contacted, was completely normal and she had an EF of 80%. 12:27 All systems are negative except as listed. Exam: 12:27 General Appearance: no acute distress, alert. pc 12:27 EENT: healing laceration/abrasion to bridge of nose without bony pain. There is gravitational swelling to right and left inner canthus. No nasal septal hematoma. No maxillary pain. 12:27 Neck: The exam reveals no acute abnormalities. ROM is normal and painless. No nuchal rigidity is noted.. Nexus criteria for suspected c-spine injury is negative. 12:27 Respiratory: no respiratory distress, normal breath sounds, chest non-tender. 12:27 CVS: regular pulse rate, regular rhythm, normal S1 and S2, no murmurs, strong peripheral pulses. 12:27 Abdomen: soft, non-tender, no organomegaly, normal bowel sounds. 12:27 Back: normal inspection. 12:27 Skin: skin color is normal, warm, dry. 12:27 Extremities: The extremities have a grossly normal appearance, are non-tender, without acute ROM abnormalities. 12:27 Neuro: oriented x 3, cranial nerves normal as tested, no motor deficits, no sensory deficits. Vital Signs: 10:53 BP 191 / 110; Pulse 83; Resp 18; Temp 98.0(O); Pulse Ox 97% on R/A; Weight 88.9 kg / elp 195.99 lbs (R); Height 5 ft. 6 in. (167.64 cm) (R); Pain 3/10; 12:42 BP 168 / 81; Pulse 71; Resp 18; Temp 98.0(O); Pulse Ox 97% on R/A; Pain 0/10; nb2 15:21 BP 156 / 74 (auto/); Pulse 70; Resp 18; Temp 97.9(TE); Pulse Ox 98% on R/A; jo3 10:53 Body Mass Index 31.63 (88.90 kg, 167.64 cm) elp MDM: 11:11 CT Head Without Contrast Ordered. EDMS 11:12 INR Ordered. EDMS 11:48 INR Reviewed. pc 12:27 Differential Diagnosis: HI on Coumadin; nasal contusion and abrasion; chronic dyspnea pc with normal vitals and exam in a former smoker. Plan: CT, labs. Data reviewed: old medical records, vital signs, nurses notes, lab test results, all radiology studies and available results. Test interpretation: LAB - all labs as ordered have been reviewed, interpreted and considered in the overall management of the clinical presentation; interpreted by Radiologist and personally reviewed, Head CT; no acute disease. The patient has been re-examined and re-evaluated. The clinical presentation did not require any ED treatment or interventions. Physician consultation: Dr. Reinier Barrera regarding patient's condition, and he relayed the stress test results as documented above. 12:38 IV Saline Lock ordered. pc 12:39 MED Profile Ordered. EDMS 12:39 CT Chest Angio R/O PE Ordered. EDMS 13:36 MED Profile Reviewed. pc 13:36 CT Head Without Contrast Reviewed. pc 15:13 Test interpretation: interpreted by Radiologist and personally reviewed, Chest CT; pc large hiatal hernia, else nad. Disposition: The historical points, examination findings, and any diagnostic results supporting the provided diagnosis, were discussed with the patient or legal guardian. The need for outpatient follow up with the provider listed on their discharge instructions was discussed. They were encouraged to return to [facility], or the nearest ED, if symptoms worsen/persist, or for any other questions/concerns. 15:17 Financial registration complete. luke 15:29 [facility] [place], [place] Payment Agreement was scanned into [employer] and attached to record. luke Signatures: Dispatcher [employer] EDMT Tyree Shaw MD MD pc Helmerci, Jennifer, RN RN Nargis Flanagan The chart was reviewed and I authenticate all verbal orders and agree with the evaluation and treatment provided.Corrections: (The following items were deleted from the chart) 12:28 12:22 She slipped on icy steps 2 days ago, striking her nose on the steps. She is on pc Coumadin for a PE from 2014. She denies any LOC and only decided to come today because pc Attachments: 15:29 [facility] Payment Agreement luke Chart Complete MTDD
== END 2016-08-16 15:36 | disposition home or self-care (01) ==
LOC: M ED 10:52
DX: S00.31XA Abrasion of nose, initial encounter (principal); W00.1XXA Fall from stairs and steps due to ice and snow, initial encounter; Y92.89 Other specified places as the place of occurrence of the external cause; Y93.89 Activity, other specified; Y99.8 Other external cause status; R06.00 Dyspnea, unspecified; K21.9 Gastro-esophageal reflux disease without esophagitis; M19.90 Unspecified osteoarthritis, unspecified site; K27.4 Chronic or unspecified peptic ulcer, site unspecified, with hemorrhage; Z86.711 Personal history of pulmonary embolism; Z79.899 Other long term (current) drug therapy; Z79.01 Long term (current) use of anticoagulants; Z88.6 Allergy status to analgesic agent; Z87.891 Personal history of nicotine dependence
CPT/HCPCS: 36415; 70450; 71275; 80048; 85610; 99284; Q9967

== ENCOUNTER → 2016-08-18 | Outpatient (REF) | payer OTHER ==
[2016-08-18 13:21] LABS: INR 2.58
== END ==
LOC: M LABDRAW1 12:48
PROVIDERS: ATTEND Physician Assistant Medical
DX: I82.432 Acute embolism and thrombosis of left popliteal vein (principal)

== ENCOUNTER → 2016-09-22 | Outpatient (REF) | payer OTHER ==
[2016-09-22 12:03] LABS: INR 2.86
[2016-09-22 12:28] LABS: ANION GAP 10 MEQ/L (8-16); BLOOD UREA NITROGEN 17 MG/DL (7-18); CALCIUM LEVEL 8.5 MG/DL (8.8-10.2); CARBON DIOXIDE LEVEL 25 MEQ/L (21-32); CHLORIDE LEVEL 106 MEQ/L (98-107); CHOLESTEROL LEVEL 232 MG/DL (<200); CREATININE FOR GFR 0.93 MG/DL (0.55-1.02); GLOMERULAR FILTRATION RATE > 60.0 (>39); GLUCOSE, FASTING 155 MG/DL (83-110); POTASSIUM SERUM 4.5 MEQ/L (3.5-5.1); SODIUM LEVEL 141 MEQ/L (136-145); TRIGLYCERIDES LEVEL 142 MG/DL (<150)
== END ==
LOC: M LABDRAW1 11:37
PROVIDERS: ATTEND Physician Assistant Medical
DX: E78.5 Hyperlipidemia, unspecified (principal); I82.432 Acute embolism and thrombosis of left popliteal vein

== ENCOUNTER → 2016-10-30 | Outpatient (REF) | payer OTHER ==
[2016-10-30 10:24] LABS: INR 2.5
== END ==
LOC: M LABDRAW1 09:52
PROVIDERS: ATTEND Physician Assistant Medical
DX: I82.432 Acute embolism and thrombosis of left popliteal vein (principal)

== ENCOUNTER → 2016-12-05 | Outpatient (REF) | payer OTHER ==
[2016-12-05 12:23] LABS: INR 2.25
== END ==
LOC: M LABDRAW1 11:48
PROVIDERS: ATTEND Physician Assistant Medical
DX: I82.432 Acute embolism and thrombosis of left popliteal vein (principal)

== ENCOUNTER → 2016-12-27 | Outpatient (REF) | payer OTHER | LOC: M LAB REF 13:08 | PROVIDERS: ATTEND Physician Assistant Medical | DX: N39.0 Urinary tract infection, site not specified (principal) ==

== ENCOUNTER → 2017-01-08 | Outpatient (REF) | payer OTHER | LOC: M LAB REF 17:17 | PROVIDERS: ATTEND Emergency Medicine | DX: L72.0 Epidermal cyst (principal) ==

== ENCOUNTER → 2017-01-09 | Outpatient (REF) | payer OTHER ==
[2017-01-09 11:29] LABS: INR 2.48
== END ==
LOC: M LABDRAW1 11:02
PROVIDERS: ATTEND Physician Assistant Medical
DX: I82.432 Acute embolism and thrombosis of left popliteal vein (principal)

== ENCOUNTER → 2017-02-08 | Outpatient (REF) | payer OTHER ==
[~2017-02-08] MED LIST changes: +NUCY50TA6 PO; -NUCY50TA9 PO
[2017-02-08 12:22] LABS: INR 2.75
== END ==
LOC: M LABDRAW1 11:39
PROVIDERS: ATTEND Physician Assistant Medical
DX: I82.432 Acute embolism and thrombosis of left popliteal vein (principal)

== ENCOUNTER → 2017-02-13 | Outpatient (CLI) | payer OTHER ==
--- NOTE | 2017-03-03 09:37 | SLEEPCENT ---
DATE OF PROCEDURE: 02/13/2017 REFERRING PHYSICIAN: Dr. Terri Anaya INTERPRETATION: Polysomnography was performed for the evaluation of sleep apnea syndrome symptoms consisting of excessive daytime sleepiness, snoring, morning headaches and nonrestorative sleep. She also has the comorbidity of pulmonary hypertension. A total of 7 hours and 25 minutes of data was reviewed with 335.5 minutes of sleep identified. Sleep latency was 10.5 minutes. Rapid eye movement (REM) latency was 133 minutes. No slow-wave sleep was identified. Sleep efficiency was 77.1%. Electrocardiogram (EKG) showed normal sinus rhythm with an average heart rate of 62 beats per minutes. Speeding and slowing was noted surrounding some respiratory events. No epileptiform discharge observed. There were a total of 54 respiratory events identified of 10 seconds in duration or longer for an apnea/hypopnea index (AHI) of 9.7. Respiratory event related arousal (RERA) index was 1.1 giving a total respiratory disturbance index (RDI) of 10.8. However, in reviewing the tracings, there were unscored events that would push this index higher, likely into the moderate range. Mean oxygen saturation for the study was 93% with a minimum recorded value of 85%. Arousal index was 20.4 with the majority of arousals related to limb movements. Periodic limb movement index was 24.1. IMPRESSION: 1. Obstructive sleep apnea, mild/moderate. 2. Periodic limb movement, moderate. RECOMMENDATIONS: The patient should return to the sleep disorder center for a determination of pressure therapy. Pending this intervention, alcohol and sedative usage should be avoided, and care should be taken when operating motor vehicles. MTDD
== END ==
LOC: M SLEEP 20:23
PROVIDERS: ATTEND Internal Medicine Pulmonary Disease
DX: G47.30 Sleep apnea, unspecified (principal)

== ENCOUNTER → 2017-03-19 | Outpatient (REF) | payer OTHER ==
[2017-03-19 11:36] LABS: INR 2.33
== END ==
LOC: M LABDRAW1 11:21
PROVIDERS: ATTEND Physician Assistant Medical
DX: I26.99 Other pulmonary embolism without acute cor pulmonale (principal)

== ENCOUNTER → 2017-04-30 | Outpatient (REF) | payer OTHER ==
[2017-04-30 22:26] LABS: INR 2.21
== END ==
LOC: M LAB REF 09:20
PROVIDERS: ATTEND Physician Assistant Medical
DX: Z86.711 Personal history of pulmonary embolism (principal); Z79.01 Long term (current) use of anticoagulants

== ENCOUNTER → 2017-08-06 | Outpatient (REF) | payer OTHER ==
[2017-08-06 14:08] LABS: INR 2.66; PROTHROMBIN TIME 29.5 SECONDS (12.4-14.5)
== END ==
LOC: M LABDRWAD 12:39
DX: Z86.711 Personal history of pulmonary embolism (principal)
CPT/HCPCS: 85610

== ENCOUNTER → 2017-09-10 | Outpatient (REF) | payer OTHER ==
[2017-09-10 13:06] LABS: BASO % 0.5 % (0.0-1.0); EOS # 0.3 10^3/uL (0.0-0.50); HEMOGLOBIN 13.2 g/dl (12.0-16.0); IMMATURE GRANULOCYTE % 0.1 % (0-3.0); LYMPH # 2.4 10^3/uL (1.5-4.5); LYMPH % 29.3 % (24.0-44.0); MEAN CORPUSCULAR HEMOGLOBIN 24.7 pg (27.0-33.0); MEAN CORPUSCULAR VOLUME 82.2 fl (80.0-96.0); MONO # 0.5 10^3/uL (0.0-0.8); MONO % 6.5 % (0.0-5.0); NEUTROPHILS % 59.6 % (36.0-66.0); PLATELET COUNT, AUTOMATED 283 10^3/uL (150-450); RED BLOOD COUNT 5.35 10^6/uL (4.00-5.40); RED CELL DISTRIBUTION WIDTH 15.8 % (11.5-14.5); WHITE BLOOD COUNT 8.3 10^3/uL (4.0-10.0)
[2017-09-10 13:20] LABS: INR 2.54; PROTHROMBIN TIME 28.4 SECONDS (12.4-14.5)
[2017-09-10 13:23] LABS: FOLATE 9.4 NG/ML; VITAMIN B12 LEVEL 802 PG/ML
[2017-09-10 13:34] LABS: IRON (FE) 38 UG/DL (50-170); PERCENT SATURATION 11.2 % (13.2-45.0); TOTAL IRON BINDING CAPACITY 339 UG/DL (250-450)
== END ==
LOC: M LABDRWAD 12:27
DX: R06.02 Shortness of breath (principal)

== ENCOUNTER → 2017-10-15 | Outpatient (REF) | payer OTHER ==
[2017-10-15 21:18] LABS: INR 2.08; PROTHROMBIN TIME 24.1 SECONDS (12.4-14.5)
== END ==
LOC: M LAB REF 20:09 → M LABDRWAD 20:09
DX: Z86.711 Personal history of pulmonary embolism (principal)
CPT/HCPCS: 85610

== ENCOUNTER → 2017-12-18 | Outpatient (REF) | payer OTHER ==
[2017-12-18 13:14] LABS: INR 3.46; PROTHROMBIN TIME 36.5 SECONDS (12.4-14.5)
== END ==
LOC: M LABDRWAD 12:39
DX: Z86.711 Personal history of pulmonary embolism (principal)
CPT/HCPCS: 85610

== ENCOUNTER → 2017-12-27 | Outpatient (CLI) | payer OTHER ==
[2017-12-27 20:24] LABS: INR 2.31; PROTHROMBIN TIME 26.3 SECONDS (12.4-14.5)
== END ==
LOC: M ADAMS 15:09
DX: Z79.01 Long term (current) use of anticoagulants (principal); Z86.711 Personal history of pulmonary embolism
CPT/HCPCS: 85610

== ENCOUNTER → 2018-02-04 | Outpatient (REF) | payer OTHER ==
[2018-02-04 13:04] LABS: PROTHROMBIN TIME 35.1 SECONDS (12.1-14.4)
== END ==
LOC: M LABDRWAD 12:36
DX: Z86.711 Personal history of pulmonary embolism (principal)

== ENCOUNTER → 2018-03-01 | Outpatient (REF) | payer OTHER ==
[2018-03-01 13:11] LABS: HEMOGLOBIN 13.6 g/dl (12.0-15.5); MEAN CORPUSCULAR HGB CONC 30.9 g/dl (32.0-36.5); MEAN CORPUSCULAR VOLUME 87.3 fl (80.0-96.0); PLATELET COUNT, AUTOMATED 309 10^3/uL (150-450); RED BLOOD COUNT 5.04 10^6/uL (4.00-5.40); WHITE BLOOD COUNT 10.2 10^3/uL (4.0-10.0)
[2018-03-01 13:42] LABS: ANION GAP 7 MEQ/L (8-16); BLOOD UREA NITROGEN 24 MG/DL (7-18); CALCIUM LEVEL 9.6 MG/DL (8.8-10.2); CARBON DIOXIDE LEVEL 34 MEQ/L (21-32); CHLORIDE LEVEL 101 MEQ/L (98-107); CREATININE FOR GFR 1.16 MG/DL (0.55-1.30); FERRITIN 52 NG/ML (8-252); GLOMERULAR FILTRATION RATE 48.9 (>39); GLUCOSE, FASTING 171 MG/DL (70-100); IRON (FE) 61 UG/DL (50-170); NT-PRO BNP 139 PG/ML (<125); PERCENT SATURATION 17.8 % (13.2-45.0); POTASSIUM SERUM 4.3 MEQ/L (3.5-5.1); SODIUM LEVEL 142 MEQ/L (136-145); TOTAL IRON BINDING CAPACITY 343 UG/DL (250-450)
== END ==
LOC: M LABDRWAD 12:31
DX: R06.00 Dyspnea, unspecified (principal); I50.30 Unspecified diastolic (congestive) heart failure; I82.90 Acute embolism and thrombosis of unspecified vein; K92.2 Gastrointestinal hemorrhage, unspecified

== ENCOUNTER → 2018-04-09 | Outpatient (REF) | payer OTHER ==
[2018-04-09 20:34] LABS: INR 4.05; PROTHROMBIN TIME 40.4 SECONDS (12.1-14.4)
== END ==
LOC: M LAB REF 19:21
DX: Z86.711 Personal history of pulmonary embolism (principal)

== ENCOUNTER → 2018-04-24 | Outpatient (REF) | payer OTHER ==
[2018-04-24 20:19] LABS: INR 1.82; PROTHROMBIN TIME 21.4 SECONDS (12.1-14.4)
== END ==
LOC: M LABDRWAD 10:09
DX: Z79.01 Long term (current) use of anticoagulants (principal)

== ENCOUNTER → 2018-05-13 | Outpatient (REF) | payer OTHER ==
[2018-05-13 20:28] LABS: INR 2.65; PROTHROMBIN TIME 28.8 SECONDS (12.1-14.4)
== END ==
LOC: M LAB REF 19:16
DX: Z79.01 Long term (current) use of anticoagulants (principal)

== ENCOUNTER → 2018-05-29 | Outpatient (REF) | payer OTHER ==
[2018-05-29 19:58] LABS: INR 2.86; PROTHROMBIN TIME 30.6 SECONDS (12.1-14.4)
== END ==
LOC: M LAB REF 19:05
DX: Z79.01 Long term (current) use of anticoagulants (principal)
CPT/HCPCS: 85610

== ENCOUNTER → 2018-07-05 | Outpatient (CLI) | payer OTHER ==
[2018-07-05 13:51] LABS: INR 3.01; PROTHROMBIN TIME 31.9 SECONDS (12.1-14.4)
== END ==
LOC: M ADAMS 11:12
DX: Z51.81 Encounter for therapeutic drug level monitoring (principal); Z79.01 Long term (current) use of anticoagulants
CPT/HCPCS: 85610

== ENCOUNTER 2018-07-17 12:55 | Emergency (ER) | payer OTHER ==
[~2018-07-17] VITALS: Ht 167.6 cm; Wt 90.9 kg
[~2018-07-17 12:55] MED LIST changes: +ACET500T15 PO; -ACET50TAOT PO; -PANT40TA2 PO; +PANT40TA3 PO
[2018-07-17] MEDS ORDERED: ONDANSETRON 4MG/2ML VIAL (J2405) IV ONE (13:30)
[2018-07-17] MEDS ORDERED: NS 500 ML IV ONE (13:30)
[2018-07-17] MEDS: MORPHINE 2 MG/ML 1ML SYRINGE (J2270) IV PRN ×2 (13:49→15:40)
[2018-07-17 13:53] LABS: BASO % 0.3 % (0.0-1.0); EOS # 0.1 10^3/uL (0.0-0.50); HEMATOCRIT 43.9 % (36.0-47.0); LYMPH # 2.2 10^3/uL (1.5-4.5); MEAN CORPUSCULAR HEMOGLOBIN 27.6 pg (27.0-33.0); MEAN CORPUSCULAR HGB CONC 31.9 g/dl (32.0-36.5); MEAN CORPUSCULAR VOLUME 86.4 fl (80.0-96.0); MONO # 0.5 10^3/uL (0.0-0.8); MONO % 5.5 % (0.0-5.0); NEUTROPHILS # 6.4 10^3/uL (1.8-7.7); NEUTROPHILS % 68.9 % (36.0-66.0); PLATELET COUNT, AUTOMATED 270 10^3/uL (150-450); RED BLOOD COUNT 5.08 10^6/uL (4.00-5.40); WHITE BLOOD COUNT 9.3 10^3/uL (4.0-10.0)
[2018-07-17 14:04] LABS: INR 2.61; PROTHROMBIN TIME 28.5 SECONDS (12.1-14.4)
[2018-07-17 14:05] LABS: PARTIAL THROMBOPLASTIN TIME 32.4 SECONDS (25.4-37.6)
[2018-07-17 14:27] LABS: CALCIUM LEVEL 9.1 MG/DL (8.8-10.2); CREATININE FOR GFR 1.2 MG/DL (0.55-1.30); POTASSIUM SERUM 4.3 MEQ/L (3.5-5.1)
--- NOTE | 2018-07-17 15:02 | REP ---
Lumbar spine series: Five views. History: Pain. Findings: Lumbar vertebral body heights are preserved. There is diffuse degenerative disc disease. Alignment is normal. No fracture or collapse is seen. Vascular calcification is noted. Diffuse aortic ectasia is seen. There is osteoarthritic facet hypertrophy and sclerosis bilaterally in the lower lumbar spine levels. No bony destructive lesion is seen. Sacrum and SI joints are intact. There is a left hip arthroplasty. Osteoarthritis is seen in the right hip. Impression: Diffuse degenerative spondylosis changes. No acute bony abnormality. Ectatic calcified aorta. Electronically Signed by Chuckie You MD 07/17/2018 08:39 P
--- NOTE | 2018-07-17 15:03 | REP ---
AP pelvis: Single view. History: Hip pain. Findings: AP view of the pelvis demonstrates a left hip arthroplasty in place. Bony pelvic ring is intact. There is osteoarthritis of the right hip. No hip fracture or pelvic fracture is seen. No sacral fracture is noted. Impression: Osteoarthritis right hip. Left hip arthroplasty. No acute bony abnormality. Electronically Signed by Chuckie You MD 07/17/2018 08:39 P
--- NOTE | 2018-07-17 15:04 | REP ---
Left hip: Two views. History: Hip pain. Findings: AP and frog-leg views of the left hip demonstrate that the patient is status post left hip arthroplasty. There is some heterotopic bone formation laterally adjacent to the prosthetic hip. There is no evidence of fracture, subluxation or other acute bony abnormality. 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 No acute bony abnormality. Electronically Signed by Chuckie You MD 07/17/2018 08:39 P
[2018-07-17] MEDS ORDERED: NORCOTAB PO (16:48)
[2018-07-17 17:03] VITALS: BP 143/69
== END 2018-07-17 17:36 | disposition home or self-care (01) ==
LOC: EDBD 12:55 → M ED 12:55
DX: M54.9 Dorsalgia, unspecified (principal); M25.552 Pain in left hip; K21.9 Gastro-esophageal reflux disease without esophagitis; Z87.19 Personal history of other diseases of the digestive system; Z85.44 Personal history of malignant neoplasm of other female genital organs; M16.11 Unilateral primary osteoarthritis, right hip; I77.819 Aortic ectasia, unspecified site; Z96.642 Presence of left artificial hip joint; Z79.01 Long term (current) use of anticoagulants; Z79.899 Other long term (current) drug therapy; Z88.1 Allergy status to other antibiotic agents; Z88.6 Allergy status to analgesic agent
CPT/HCPCS: 72110; 72170; 73502; 80048; 85025; 85610; 85730; 86850; 86900; 86901; 96361; 96374; 96375; 96376; 99284; J2270; J2405

== ENCOUNTER → 2018-08-16 | Outpatient (REF) | payer OTHER ==
[~2018-08-16] MED LIST changes: +NORCOTAB PO; +NUCY50TA19 PO; -NUCY50TA6 PO
[2018-08-16 20:19] LABS: INR 4.65
== END ==
LOC: M LABDRWAD 19:11
PROVIDERS: ATTEND Physician Assistant Medical
DX: Z79.01 Long term (current) use of anticoagulants (principal)

== ENCOUNTER → 2018-09-04 | Outpatient (REF) | payer OTHER ==
[2018-09-04 13:31] LABS: INR 1.76; PROTHROMBIN TIME 20.8 SECONDS (12.1-14.4)
== END ==
LOC: M LABDRWAD 12:27
PROVIDERS: ATTEND Physician Assistant Medical
DX: Z79.01 Long term (current) use of anticoagulants (principal)

== ENCOUNTER → 2018-09-09 | Outpatient (REF) | payer OTHER ==
[2018-09-09 13:25] LABS: INR 1.13; PROTHROMBIN TIME 14.6 SECONDS (12.1-14.4)
== END ==
LOC: M LABDRWAD 12:14 → M LAB REF 12:14
PROVIDERS: ATTEND Physician Assistant Medical
DX: Z79.01 Long term (current) use of anticoagulants (principal)

== ENCOUNTER → 2018-09-20 | Outpatient (REF) | payer OTHER ==
[2018-09-20 13:22] LABS: INR 2.73; PROTHROMBIN TIME 29.5 SECONDS (12.1-14.4)
== END ==
LOC: M LABDRWAD 12:14
PROVIDERS: ATTEND Physician Assistant Medical
DX: Z79.01 Long term (current) use of anticoagulants (principal)

== ENCOUNTER → 2018-10-22 | Outpatient (REF) | payer OTHER ==
[2018-10-22 19:23] LABS: PROTHROMBIN TIME 60.4 SECONDS (12.1-14.4)
[2018-10-22 19:38] LABS: INR 6.73
== END ==
LOC: M LAB REF 18:31
PROVIDERS: ATTEND Physician Assistant Medical
DX: Z79.01 Long term (current) use of anticoagulants (principal)

== ENCOUNTER → 2018-10-25 | Outpatient (REF) | payer OTHER ==
[2018-10-25 12:38] LABS: BASO # 0.1 10^3/uL (0.0-0.2); BASO % 0.5 % (0.0-1.0); EOS # 0.2 10^3/uL (0.0-0.50); EOS % 2.4 % (0.0-3.0); HEMATOCRIT 44.5 % (36.0-47.0); HEMOGLOBIN 13.9 g/dl (12.0-15.5); LYMPH # 2.5 10^3/uL (1.5-4.5); LYMPH % 26.7 % (24.0-44.0); MEAN CORPUSCULAR HEMOGLOBIN 27.4 pg (27.0-33.0); MEAN CORPUSCULAR HGB CONC 31.2 g/dl (32.0-36.5); MEAN CORPUSCULAR VOLUME 87.6 fl (80.0-96.0); MONO # 0.6 10^3/uL (0.0-0.8); MONO % 6.4 % (0.0-5.0); NEUTROPHILS % 63.6 % (36.0-66.0); PLATELET COUNT, AUTOMATED 335 10^3/uL (150-450); RED BLOOD COUNT 5.08 10^6/uL (4.00-5.40); WHITE BLOOD COUNT 9.5 10^3/uL (4.0-10.0)
[2018-10-25 12:48] LABS: INR 3.45; PROTHROMBIN TIME 35.5 SECONDS (12.1-14.4)
[2018-10-25 13:33] LABS: ALBUMIN 3.6 GM/DL (3.2-5.2); BILIRUBIN,TOTAL 0.5 MG/DL (0.2-1.0); CALCIUM LEVEL 9.3 MG/DL (8.8-10.2); CHOLESTEROL RISK RATIO 6.121 (<5); CREATININE FOR GFR 1.04 MG/DL (0.55-1.30); FREE T4 1.22 NG/DL (0.76-1.46); GLOMERULAR FILTRATION RATE 55.3 (>39); POTASSIUM SERUM 4.2 MEQ/L (3.5-5.1); THYROID STIMULATING HORMONE 4.18 uIU/ML (0.358-3.740); TOTAL PROTEIN 7.1 GM/DL (6.4-8.2)
== END ==
LOC: M LABDRWAD 12:07
PROVIDERS: ATTEND Physician Assistant Medical
DX: Z79.01 Long term (current) use of anticoagulants (principal)

== ENCOUNTER → 2018-10-29 | Outpatient (REF) | payer OTHER ==
[~2018-10-29] MED LIST changes: -/PANT40TA; +HYDR-3715 PO; -NORCOTAB PO; +PROT1TAB2
[2018-10-29 20:19] LABS: INR 2.32; PROTHROMBIN TIME 25.9 SECONDS (12.1-14.4)
== END ==
LOC: M LABDRWAD 19:26
PROVIDERS: ATTEND Physician Assistant Medical
DX: Z51.81 Encounter for therapeutic drug level monitoring (principal); Z79.01 Long term (current) use of anticoagulants

== ENCOUNTER → 2018-11-12 | Outpatient (REF) | payer OTHER ==
[2018-11-12 13:48] LABS: INR 3.03; PROTHROMBIN TIME 32.1 SECONDS (12.1-14.4)
[2018-11-12 13:54] LABS: CALCIUM LEVEL 9.4 MG/DL (8.8-10.2); CHOLESTEROL RISK RATIO 6.512 (<5); CREATININE FOR GFR 1.21 MG/DL (0.55-1.30); GLOMERULAR FILTRATION RATE 46.4 (>39); POTASSIUM SERUM 4.2 MEQ/L (3.5-5.1)
== END ==
LOC: M LABDRWAD 12:37
PROVIDERS: ATTEND Physician Assistant Medical
DX: Z79.01 Long term (current) use of anticoagulants (principal)

== ENCOUNTER → 2018-12-11 | Outpatient (REF) | payer OTHER ==
[2018-12-11 13:59] LABS: INR 2.23; PROTHROMBIN TIME 25.1 SECONDS (12.1-14.4)
== END ==
LOC: M LABDRWAD 12:19
PROVIDERS: ATTEND Physician Assistant Medical
DX: Z79.01 Long term (current) use of anticoagulants (principal)

== ENCOUNTER → 2018-12-26 | Outpatient (REF) | payer OTHER ==
[2018-12-27 10:59] LABS: INR 2.07; PROTHROMBIN TIME 23.7 SECONDS (12.1-14.4)
== END ==
LOC: M LABDRWAD 10:43
PROVIDERS: ATTEND Physician Assistant Medical
DX: Z79.01 Long term (current) use of anticoagulants (principal)

== ENCOUNTER → 2019-02-04 | Outpatient (REF) | payer OTHER ==
[2019-02-04 14:03] LABS: INR 3.35; PROTHROMBIN TIME 33.9 SECONDS (11.8-14.0)
== END ==
LOC: M LABDRWAD 13:08
PROVIDERS: ATTEND Physician Assistant Medical
DX: Z79.01 Long term (current) use of anticoagulants (principal)

== ENCOUNTER → 2019-02-17 | Outpatient (REF) | payer MEDICARE, OTHER ==
[2019-02-17 20:06] LABS: INR 2.48; PROTHROMBIN TIME 26.7 SECONDS (11.8-14.0)
== END ==
LOC: M LABDRWAD 19:16 → M LAB REF 19:16
PROVIDERS: ATTEND Physician Assistant Medical
DX: Z86.711 Personal history of pulmonary embolism (principal)

== ENCOUNTER → 2019-03-20 | Outpatient (REF) | payer MEDICARE, OTHER ==
[2019-03-20 13:18] LABS: CALCIUM LEVEL 9.4 MG/DL (8.8-10.2); CHOLESTEROL RISK RATIO 5.787 (<5); CREATININE FOR GFR 1.1 MG/DL (0.55-1.30); GLOMERULAR FILTRATION RATE 51.8 (>39); POTASSIUM SERUM 4.9 MEQ/L (3.5-5.1)
[2019-03-20 13:22] LABS: INR 3.17; PROTHROMBIN TIME 32.4 SECONDS (11.8-14.0)
[2019-03-20 13:53] LABS: MALB URINE SIEMENS 9.5 MG/L; MAU/CREAT RATIO 8.1 MCG/MG (0.0-30.0)
[2019-03-20 14:03] LABS: HEMOGLOBIN A1c 9.3 %
== END ==
LOC: M LABDRWAD 12:14
PROVIDERS: ATTEND Physician Assistant Medical
DX: Z86.711 Personal history of pulmonary embolism (principal); E11.69 Type 2 diabetes mellitus with other specified complication

== ENCOUNTER → 2019-04-07 | Outpatient (REF) | payer MEDICARE, OTHER ==
[2019-04-07 19:53] LABS: INR 2.38; PROTHROMBIN TIME 25.8 SECONDS (11.8-14.0)
== END ==
LOC: M LABDRWAD 19:09
PROVIDERS: ATTEND Physician Assistant Medical
DX: Z86.711 Personal history of pulmonary embolism (principal)

== ENCOUNTER → 2019-05-02 | Outpatient (REF) | payer MEDICARE, OTHER ==
[2019-05-02 13:38] LABS: CALCIUM LEVEL 9.4 MG/DL (8.8-10.2); CREATININE FOR GFR 1.13 MG/DL (0.55-1.30); GLOMERULAR FILTRATION RATE 50.2 (>39); POTASSIUM SERUM 4.5 MEQ/L (3.5-5.1)
== END ==
LOC: M LABDRWAD 12:35
PROVIDERS: ATTEND Physician Assistant
DX: E11.9 Type 2 diabetes mellitus without complications (principal)

== ENCOUNTER → 2019-06-09 | Outpatient (REF) | payer MEDICARE, OTHER ==
[2019-06-09 12:50] LABS: INR 2.05; PROTHROMBIN TIME 22.9 SECONDS (11.8-14.0)
== END ==
LOC: M LABDRWAD 12:19
PROVIDERS: ATTEND Physician Assistant
DX: Z86.711 Personal history of pulmonary embolism (principal)

== ENCOUNTER → 2019-06-30 | Outpatient (REF) | payer MEDICARE, OTHER ==
[2019-06-30 18:13] LABS: INR 2.05; PROTHROMBIN TIME 22.9 SECONDS (11.8-14.0)
== END ==
LOC: M LABDRWAD 16:22
PROVIDERS: ATTEND Physician Assistant Medical
DX: Z86.711 Personal history of pulmonary embolism (principal)

== ENCOUNTER → 2019-07-21 | Outpatient (REF) | payer MEDICARE, OTHER ==
[2019-07-21 16:16] LABS: INR 1.66; PROTHROMBIN TIME 19.4 SECONDS (11.8-14.0)
== END ==
LOC: M LABDRWAD 15:55
PROVIDERS: ATTEND Physician Assistant Medical
DX: I27.29 Other secondary pulmonary hypertension (principal); Z86.711 Personal history of pulmonary embolism

== ENCOUNTER → 2019-07-21 | Outpatient (REF) | payer MEDICARE, OTHER ==
[2019-07-21 15:44] LABS: CALCIUM LEVEL 9.4 MG/DL (8.8-10.2); CREATININE FOR GFR 1.51 MG/DL (0.55-1.30); POTASSIUM SERUM 4.3 MEQ/L (3.5-5.1)
== END ==
LOC: M LABDRWAD 14:58 → M LAB REF 14:58
PROVIDERS: ATTEND Physician Assistant Medical
DX: I27.29 Other secondary pulmonary hypertension (principal); Z86.711 Personal history of pulmonary embolism

== ENCOUNTER → 2019-08-04 | Outpatient (REF) | payer MEDICARE, OTHER ==
[2019-08-04 16:54] LABS: CALCIUM LEVEL 9.6 MG/DL (8.8-10.2); CREATININE FOR GFR 1.54 MG/DL (0.55-1.30); GLOMERULAR FILTRATION RATE 35.2 (>39); POTASSIUM SERUM 4.1 MEQ/L (3.5-5.1)
== END ==
LOC: M LABDRWAD 16:29
PROVIDERS: ATTEND Internal Medicine Pulmonary Disease
DX: I27.29 Other secondary pulmonary hypertension (principal); Z79.899 Other long term (current) drug therapy; I82.432 Acute embolism and thrombosis of left popliteal vein

== ENCOUNTER → 2019-08-04 | Outpatient (REF) | payer MEDICARE, OTHER ==
[2019-08-04 17:11] LABS: INR 2.43; PROTHROMBIN TIME 26.3 SECONDS (11.8-14.0)
== END ==
LOC: M LABDRWAD 16:31
PROVIDERS: ATTEND Physician Assistant
DX: I82.432 Acute embolism and thrombosis of left popliteal vein (principal)

== ENCOUNTER → 2019-09-18 | Outpatient (REF) | payer MEDICARE, OTHER ==
[2019-09-18 14:11] LABS: INR 1.92; PROTHROMBIN TIME 21.7 SECONDS (11.8-14.0)
== END ==
LOC: M LABDRAW1 12:39 → M LABDRWAD 12:39
PROVIDERS: ATTEND Physician Assistant Medical
DX: Z86.711 Personal history of pulmonary embolism (principal)

== ENCOUNTER → 2019-09-18 | Outpatient (REF) | payer MEDICARE, OTHER ==
[2019-09-18 14:08] LABS: CALCIUM LEVEL 9.9 MG/DL (8.8-10.2); CREATININE FOR GFR 1.26 MG/DL (0.55-1.30); GLOMERULAR FILTRATION RATE 44.2 (>39); POTASSIUM SERUM 4.3 MEQ/L (3.5-5.1)
== END ==
LOC: M LABDRWAD 12:41
PROVIDERS: ATTEND Internal Medicine Pulmonary Disease
DX: Z79.899 Other long term (current) drug therapy (principal); Z86.711 Personal history of pulmonary embolism

== ENCOUNTER → 2019-09-29 | Outpatient (REF) | payer MEDICARE, OTHER ==
[2019-09-29 14:05] LABS: INR 2.12; PROTHROMBIN TIME 23.6 SECONDS (11.8-14.0)
== END ==
LOC: M LABDRWAD 12:44
PROVIDERS: ATTEND Physician Assistant
DX: I82.432 Acute embolism and thrombosis of left popliteal vein (principal)

== ENCOUNTER → 2019-10-07 | Outpatient (REF) | payer MEDICARE, OTHER ==
[2019-10-07 16:50] LABS: INR 1.96; PROTHROMBIN TIME 22.1 SECONDS (11.8-14.0)
== END ==
LOC: M LABDRWAD 16:17
PROVIDERS: ATTEND Physician Assistant
DX: I82.432 Acute embolism and thrombosis of left popliteal vein (principal)

== ENCOUNTER → 2019-10-24 | Outpatient (REF) | payer MEDICARE, OTHER ==
[2019-10-24 17:39] LABS: INR 2.27; PROTHROMBIN TIME 24.9 SECONDS (11.8-14.0)
== END ==
LOC: M LAB REF 16:41 → M LABDRWAD 16:41
PROVIDERS: ATTEND Physician Assistant
DX: I82.432 Acute embolism and thrombosis of left popliteal vein (principal)

== ENCOUNTER → 2019-11-25 | Outpatient (REF) | payer MEDICARE, OTHER ==
[2019-11-25 18:13] LABS: INR 1.65; PROTHROMBIN TIME 19.3 SECONDS (11.8-14.0)
== END ==
LOC: M LABDRWAD 17:44
PROVIDERS: ATTEND Physician Assistant
DX: I82.432 Acute embolism and thrombosis of left popliteal vein (principal)

== ENCOUNTER → 2019-11-25 | Outpatient (REF) | payer MEDICARE, OTHER ==
[2019-11-25 18:07] LABS: CALCIUM LEVEL 9.3 MG/DL (8.8-10.2); CREATININE FOR GFR 1.55 MG/DL (0.55-1.30); GLOMERULAR FILTRATION RATE 34.8 (>39); POTASSIUM SERUM 4.1 MEQ/L (3.5-5.1)
== END ==
LOC: M LABDRWAD 17:45
PROVIDERS: ATTEND Internal Medicine Pulmonary Disease
DX: I27.29 Other secondary pulmonary hypertension (principal); Z79.899 Other long term (current) drug therapy; Z79.01 Long term (current) use of anticoagulants; I82.432 Acute embolism and thrombosis of left popliteal vein

== ENCOUNTER → 2020-01-27 | Outpatient (REF) | payer MEDICARE, OTHER ==
[2020-01-27 13:54] LABS: CALCIUM LEVEL 9.5 MG/DL (8.8-10.2); CREATININE FOR GFR 1.39 MG/DL (0.55-1.30); GLOMERULAR FILTRATION RATE 39.5 (>39); POTASSIUM SERUM 4.4 MEQ/L (3.5-5.1)
== END ==
LOC: M LABDRWAD 12:20
PROVIDERS: ATTEND Internal Medicine Pulmonary Disease
DX: I27.29 Other secondary pulmonary hypertension (principal); Z79.01 Long term (current) use of anticoagulants

== ENCOUNTER → 2020-01-27 | Outpatient (REF) | payer MEDICARE, OTHER ==
[2020-01-27 13:45] LABS: INR 1.78; PROTHROMBIN TIME 20.5 SECONDS (11.8-14.0)
== END ==
LOC: M LABDRWAD 12:22
PROVIDERS: ATTEND Physician Assistant
DX: I82.432 Acute embolism and thrombosis of left popliteal vein (principal)

== ENCOUNTER → 2020-03-01 | Outpatient (REF) | payer MEDICARE, OTHER ==
[~2020-03-01] MED LIST changes: +PANT40TA29 PO; -PANT40TA3 PO
[2020-05-18 09:27] LABS: GLUCOSE, FASTING SEE SEPARATE REPORT
== END ==
LOC: M LABDRWAD 09:09
PROVIDERS: ATTEND Internal Medicine Pulmonary Disease
DX: I27.29 Other secondary pulmonary hypertension (principal); Z79.01 Long term (current) use of anticoagulants

== ENCOUNTER → 2020-03-01 | Outpatient (REF) | payer MEDICARE, OTHER ==
[2020-03-28 22:59] LABS: PROTHROMBIN TIME 19.5 SECONDS (11.8-14.0)
[2020-03-28 23:00] LABS: INR 1.61
== END ==
LOC: M LABDRWAD 09:06
PROVIDERS: ATTEND Physician Assistant
DX: I82.432 Acute embolism and thrombosis of left popliteal vein (principal)

== ENCOUNTER → 2020-03-29 | Outpatient (REF) | payer MEDICARE, OTHER ==
[2020-03-29 14:07] LABS: INR 2.15; PROTHROMBIN TIME 24.5 SECONDS (11.8-14.0)
== END ==
LOC: M LABDRWAD 13:22
PROVIDERS: ATTEND Physician Assistant
DX: I82.432 Acute embolism and thrombosis of left popliteal vein (principal)

== ENCOUNTER → 2020-03-29 | Outpatient (REF) | payer MEDICARE, OTHER | LOC: M WUC 09:11 | PROVIDERS: ATTEND Physician Assistant | DX: R82.90 Unspecified abnormal findings in urine (principal); Z79.01 Long term (current) use of anticoagulants ==

== ENCOUNTER → 2020-04-16 | Outpatient (REF) | payer MEDICARE, OTHER ==
[2020-04-16 18:24] LABS: BASO # 0.1 10^3/uL (0.0-0.2); BASO % 0.5 % (0.0-1.0); EOS # 0.1 10^3/uL (0.0-0.5); EOS % 1.2 % (0.0-3.0); HEMATOCRIT 45.8 % (36.0-47.0); HEMOGLOBIN 14.2 g/dl (12.0-15.5); LYMPH # 2.8 10^3/uL (1.5-5.0); LYMPH % 26.8 % (24.0-44.0); MEAN CORPUSCULAR HEMOGLOBIN 27.3 pg (27.0-33.0); MEAN CORPUSCULAR VOLUME 87.9 fl (80.0-96.0); MONO # 0.6 10^3/uL (0.0-0.8); MONO % 6.1 % (0.0-5.0); NEUTROPHILS # 6.8 10^3/uL (1.5-8.5); NEUTROPHILS % 65.1 % (36.0-66.0); PLATELET COUNT, AUTOMATED 331 10^3/uL (150-450); RED BLOOD COUNT 5.21 10^6/uL (4.00-5.40); WHITE BLOOD COUNT 10.4 10^3/uL (4.0-10.0)
[2020-04-16 18:31] LABS: BILIRUBIN,TOTAL 0.3 MG/DL (0.2-1.0); CALCIUM LEVEL 9.5 MG/DL (8.8-10.2); CHOLESTEROL RISK RATIO 4.509 (<5); CREATININE FOR GFR 1.5 MG/DL (0.55-1.30); GLOMERULAR FILTRATION RATE 36.1 (>39); POTASSIUM SERUM 4.6 MEQ/L (3.5-5.1); TOTAL PROTEIN 7.9 GM/DL (6.4-8.2)
[2020-04-16 18:55] LABS: HEMOGLOBIN A1c 6.5 %
== END ==
LOC: M SFHCADAM 16:34
PROVIDERS: ATTEND Family Medicine
DX: Z00.00 Encounter for general adult medical examination without abnormal findings (principal); Z79.899 Other long term (current) drug therapy

== ENCOUNTER → 2020-05-21 | Outpatient (CLI) | payer MEDICARE, OTHER ==
--- NOTE | 2020-05-21 15:12 | REP ---
INDICATION: INJURY OF RIGHT SHOULDER, INITIAL ENCOUNTERR COMPARISON: None. TECHNIQUE: Internal rotation, external rotation, and Y view right shoulder. FINDINGS: Age-related osteopenia and moderate arthritic changes include cortical irregularity at the acromioclavicular joint as well as spurring along the inferior margin of the humeral head and glenoid rim. No acute fracture or dislocation. IMPRESSION: Moderate osteoarthritic degenerative changes. No acute fracture or dislocation. <Electronically signed by Foreign Fernández > 05/21/20 [id number]
== END ==
LOC: M ADAMS 10:44
PROVIDERS: ATTEND Family Medicine
DX: M19.011 Primary osteoarthritis, right shoulder (principal); M85.811 Other specified disorders of bone density and structure, right shoulder; Z79.01 Long term (current) use of anticoagulants
CPT/HCPCS: 73030; 85610; G0463

== ENCOUNTER → 2020-06-18 | Outpatient (REF) | payer MEDICARE, OTHER ==
[2020-06-18 17:39] LABS: CALCIUM LEVEL 9.4 MG/DL (8.8-10.2); CREATININE FOR GFR 2.09 MG/DL (0.55-1.30); GLOMERULAR FILTRATION RATE 24.6 (>39); POTASSIUM SERUM 4.7 MEQ/L (3.5-5.1)
== END ==
LOC: M LABDRWAD 16:25
PROVIDERS: ATTEND Internal Medicine Pulmonary Disease
DX: I27.29 Other secondary pulmonary hypertension (principal); Z79.899 Other long term (current) drug therapy

== ENCOUNTER → 2020-07-13 | Outpatient (REF) | payer MEDICARE, OTHER ==
[2020-07-13 13:40] LABS: INR 1.6; PROTHROMBIN TIME 19.4 SECONDS (12.5-14.3)
== END ==
LOC: M SFHCADAM 10:50
PROVIDERS: ATTEND Physician Assistant Medical
DX: Z79.01 Long term (current) use of anticoagulants (principal); Z86.711 Personal history of pulmonary embolism

== ENCOUNTER → 2020-08-09 | Outpatient (REF) | payer MEDICARE, OTHER | LOC: M SFHCADAM 14:01 | PROVIDERS: ATTEND Family Medicine | DX: R09.89 Other specified symptoms and signs involving the circulatory and respiratory systems (principal); Z79.01 Long term (current) use of anticoagulants; Z11.52 Encounter for screening for COVID-19 | CPT/HCPCS: 85610; G0463; U0003 ==

== ENCOUNTER → 2020-09-13 | Outpatient (REF) | payer MEDICARE, OTHER ==
[2020-09-13 17:51] LABS: BASO % 0.4 % (0.0-1.0); EOS # 0.2 10^3/uL (0.0-0.5); EOS % 1.9 % (0.0-3.0); HEMATOCRIT 41.6 % (36.0-47.0); HEMOGLOBIN 12.6 g/dl (12.0-15.5); LYMPH # 2.8 10^3/uL (1.5-5.0); MEAN CORPUSCULAR HEMOGLOBIN 27.3 pg (27.0-33.0); MEAN CORPUSCULAR HGB CONC 30.3 g/dl (32.0-36.5); MONO # 0.6 10^3/uL (0.0-0.8); MONO % 6.1 % (0.0-8.0); NEUTROPHILS # 5.8 10^3/uL (1.5-8.5); NEUTROPHILS % 61.3 % (36.0-66.0); PLATELET COUNT, AUTOMATED 268 10^3/uL (150-450); RED BLOOD COUNT 4.62 10^6/uL (4.00-5.40); WHITE BLOOD COUNT 9.4 10^3/uL (4.0-10.0)
[2020-09-13 17:52] LABS: ALBUMIN 3.5 GM/DL (3.2-5.2); ALT/SGPT 18 U/L (12-78); BILIRUBIN,TOTAL 0.3 MG/DL (0.2-1.0); BLOOD UREA NITROGEN 23 MG/DL (7-18); CALCIUM LEVEL 9.5 MG/DL (8.8-10.2); CARBON DIOXIDE LEVEL 28 MEQ/L (21-32); CHLORIDE LEVEL 108 MEQ/L (98-107); CREATININE FOR GFR 1.24 MG/DL (0.55-1.30); GLOMERULAR FILTRATION RATE 44.9 (>39); GLUCOSE, FASTING 86 MG/DL (70-100); POTASSIUM SERUM 4.5 MEQ/L (3.5-5.1); SODIUM LEVEL 144 MEQ/L (136-145); TOTAL PROTEIN 6.9 GM/DL (6.4-8.2)
[2020-09-13 17:53] LABS: VITAMIN B12 LEVEL 552 PG/ML (247-911)
[2020-09-13 18:31] LABS: HEMOGLOBIN A1c 6.4 %
== END ==
LOC: M SFHCADAM 11:57
PROVIDERS: ATTEND Family Medicine
DX: R41.3 Other amnesia (principal); E11.69 Type 2 diabetes mellitus with other specified complication; Z79.01 Long term (current) use of anticoagulants
CPT/HCPCS: 80053; 82607; 83036; 84443; 85025; 85610; 86780; G0463

== ENCOUNTER → 2020-12-06 | Outpatient (REF) | payer MEDICARE, OTHER ==
[2020-12-06 19:06] LABS: CREATININE FOR GFR 1.45 MG/DL (0.55-1.30); GLOMERULAR FILTRATION RATE 37.5 (>39); POTASSIUM SERUM 4.9 MEQ/L (3.5-5.1)
== END ==
LOC: M LAB REF 17:28
PROVIDERS: ATTEND Internal Medicine Pulmonary Disease
DX: I27.29 Other secondary pulmonary hypertension (principal)

== ENCOUNTER → 2021-01-04 | Outpatient (REF) | payer MEDICARE, OTHER | LOC: M LAB REF 10:00 | PROVIDERS: ATTEND Dermatology | DX: C44.329 Squamous cell carcinoma of skin of other parts of face (principal) | CPT/HCPCS: 14301; 88305; 88331; 88332; G0463 ==

== ENCOUNTER → 2021-02-07 | Outpatient (CLI) | payer MEDICARE, OTHER | LOC: M PLARAD 09:21 | PROVIDERS: ATTEND Dermatology | DX: C34.12 Malignant neoplasm of upper lobe, left bronchus or lung (principal); C44.329 Squamous cell carcinoma of skin of other parts of face | CPT/HCPCS: 78816; A9552 ==

== ENCOUNTER → 2021-02-28 | Outpatient (CLI) | payer MEDICARE, OTHER ==
--- NOTE | 2021-02-28 13:19 | REP ---
INDICATION: LEFT FOOT PAIN COMPARISON: None. TECHNIQUE: There are five views. FINDINGS: There is spurring along the superior margin of the talo-scaphoid articulation compatible with osteoarthritis. There is no fracture or dislocation. Mineralization and joint spaces are normal. There are no calcifications or foreign bodies. IMPRESSION: Tail-scaphoid osteoarthritis. Otherwise, negative left ankle. <Electronically signed by Johnathan Mendoza > 02/28/21 [id number]
--- NOTE | 2021-02-28 13:21 | REP ---
INDICATION: LEFT FOOT PAIN COMPARISON: None. TECHNIQUE: There are four views. FINDINGS: There is superior spurring and joint space narrowing at the talus-scaphoid joint. There is mild osteoarthritis at the great toe MTP articulation. There is mild/moderate osteoarthritis of the PIP and DIP articulations of the 2nd through 5th digits. There is no fracture or dislocation. Mineralization and joint spaces are normal. There are no calcifications or foreign bodies. IMPRESSION: Osteoarthritis as described. <Electronically signed by Johnathan Mendoza > 02/28/21 [id number]
== END ==
LOC: M ADAMS 11:05
PROVIDERS: ATTEND Family Medicine
DX: M19.072 Primary osteoarthritis, left ankle and foot (principal); M79.672 Pain in left foot
CPT/HCPCS: 73610; 73630; G0463

== ENCOUNTER → 2021-03-14 | Outpatient (REF) | payer MEDICARE, OTHER ==
[2021-03-14 13:36] LABS: INR 1.95; PROTHROMBIN TIME 22.7 SECONDS (12.7-14.5)
== END ==
LOC: M SFHCADAM 12:27
PROVIDERS: ATTEND Family Medicine
DX: Z79.01 Long term (current) use of anticoagulants (principal)

== ENCOUNTER → 2021-03-28 | Outpatient (REF) | payer MEDICARE, OTHER ==
[2021-03-28 19:24] LABS: INR 2.31; PROTHROMBIN TIME 25.8 SECONDS (12.7-14.5)
== END ==
LOC: M SFHCADAM 13:26
PROVIDERS: ATTEND Family Medicine
DX: Z79.01 Long term (current) use of anticoagulants (principal)
CPT/HCPCS: 85610; G0463

== ENCOUNTER → 2021-04-14 | Outpatient (REF) | payer MEDICARE, OTHER ==
[2021-04-14 17:46] LABS: CALCIUM LEVEL 9.4 MG/DL (8.8-10.2); CREATININE FOR GFR 1.66 MG/DL (0.55-1.30); GLOMERULAR FILTRATION RATE 32.1 (>39); POTASSIUM SERUM 4.5 MEQ/L (3.5-5.1)
== END ==
LOC: M LABDRWAD 16:46
PROVIDERS: ATTEND Internal Medicine Pulmonary Disease
DX: Z86.711 Personal history of pulmonary embolism (principal)

== ENCOUNTER → 2021-04-14 | Outpatient (REF) | payer MEDICARE, OTHER ==
[2021-04-14 21:10] LABS: INR 1.88
== END ==
LOC: M SFHCADAM 15:27
PROVIDERS: ATTEND Family Medicine
DX: Z86.711 Personal history of pulmonary embolism (principal)

== ENCOUNTER → 2021-05-02 | Outpatient (REF) | payer MEDICARE, OTHER ==
[2021-05-02 17:49] LABS: CALCIUM LEVEL 10.3 MG/DL (8.8-10.2); CREATININE FOR GFR 1.53 MG/DL (0.55-1.30); GLOMERULAR FILTRATION RATE 35.2 (>39); POTASSIUM SERUM 4.5 MEQ/L (3.5-5.1)
== END ==
LOC: M LABDRWAD 16:46 → M LAB REF 16:46
PROVIDERS: ATTEND Internal Medicine Pulmonary Disease
DX: I27.29 Other secondary pulmonary hypertension (principal); Z79.899 Other long term (current) drug therapy

== ENCOUNTER → 2021-05-18 | Outpatient (CLI) | payer MEDICARE, OTHER ==
--- NOTE | 2021-05-18 15:37 | REP ---
INDICATION: CHEST PAIN. COMPARISON: 08/14/2016 the latest prior FINDINGS: The cardiomediastinal silhouette is unchanged. The heart is not enlarged. There is a large hiatal hernia. The lung alvarado are stable. No acute patchy parenchymal opacities or pleural effusions have developed. There is an incidental calcified granuloma in the right upper lobe status quo. There is no change in the osseous structures. IMPRESSION: There is no acute cardiopulmonary disease. <Electronically signed by Chris Lorenzo > 05/18/21 [id number]
== END ==
LOC: M ADAMS 15:18
PROVIDERS: ATTEND Family Medicine
DX: R07.9 Chest pain, unspecified (principal); K44.9 Diaphragmatic hernia without obstruction or gangrene
CPT/HCPCS: 71046; 85610; G0463

== ENCOUNTER → 2021-05-26 | Outpatient (CLI) | payer MEDICARE, OTHER | LOC: M LABSMTC 09:47 | PROVIDERS: ATTEND Pediatrics | DX: Z20.822 Contact with and (suspected) exposure to COVID-19 (principal) | CPT/HCPCS: C9803; U0003 ==

== ENCOUNTER → 2021-06-08 | Outpatient (REF) | payer MEDICARE, OTHER ==
[2021-06-08 17:02] LABS: CALCIUM LEVEL 10.1 MG/DL (8.8-10.2); CREATININE FOR GFR 1.45 MG/DL (0.55-1.30); GLOMERULAR FILTRATION RATE 37.5 (>39); POTASSIUM SERUM 4.8 MEQ/L (3.5-5.1)
== END ==
LOC: M LAB REF 16:04 → M LABDRWAD 16:04
PROVIDERS: ATTEND Internal Medicine Pulmonary Disease
DX: I27.29 Other secondary pulmonary hypertension (principal); Z79.899 Other long term (current) drug therapy

== ENCOUNTER → 2021-07-07 | Outpatient (REF) | payer MEDICARE, OTHER ==
[2021-07-07 16:52] LABS: CALCIUM LEVEL 9.3 MG/DL (8.8-10.2); CREATININE FOR GFR 1.64 MG/DL (0.55-1.30); GLOMERULAR FILTRATION RATE 32.5 (>39)
== END ==
LOC: M LABDRWAD 16:05
PROVIDERS: ATTEND Internal Medicine Pulmonary Disease
DX: I27.29 Other secondary pulmonary hypertension (principal); Z79.899 Other long term (current) drug therapy

== ENCOUNTER → 2021-10-03 | Outpatient (REF) | payer MEDICARE, OTHER ==
[2021-10-03 17:20] LABS: ALBUMIN 3.7 GM/DL (3.2-5.2); BILIRUBIN,TOTAL 0.2 MG/DL (0.2-1.0); CALCIUM LEVEL 9.6 MG/DL (8.8-10.2); CREATININE FOR GFR 1.56 MG/DL (0.55-1.30); GLOMERULAR FILTRATION RATE 34.4 (>39); POTASSIUM SERUM 4.1 MEQ/L (3.5-5.1); TOTAL PROTEIN 7.6 GM/DL (6.4-8.2)
== END ==
LOC: M LABDRWAD 13:29 → M SFHCADAM 13:29
PROVIDERS: ATTEND Family Medicine
DX: E11.69 Type 2 diabetes mellitus with other specified complication (principal); Z51.81 Encounter for therapeutic drug level monitoring; Z79.899 Other long term (current) drug therapy

== ENCOUNTER → 2021-12-16 | Outpatient (CLI) | payer MEDICARE, OTHER | LOC: M SOG 08:26 | PROVIDERS: ATTEND Orthopaedic Surgery Adult Reconstructive Orthopaedic Surgery | DX: M17.11 Unilateral primary osteoarthritis, right knee (principal); M25.561 Pain in right knee ==

== ENCOUNTER → 2022-01-04 | Outpatient (CLI) | payer MEDICARE, OTHER ==
[2022-01-04 16:42] LABS: CALCIUM LEVEL 9.4 MG/DL (8.8-10.2); CREATININE FOR GFR 1.51 MG/DL (0.55-1.30); GLOMERULAR FILTRATION RATE 35.7 (>39); POTASSIUM SERUM 4.3 MEQ/L (3.5-5.1)
== END ==
LOC: M ADAMS 13:17
PROVIDERS: ATTEND Internal Medicine Pulmonary Disease
DX: I27.29 Other secondary pulmonary hypertension (principal); Z79.899 Other long term (current) drug therapy

== ENCOUNTER → 2022-02-22 | Outpatient (CLI) | payer MEDICARE, OTHER | LOC: M LABSMTC 10:49 | PROVIDERS: ATTEND Pediatrics | DX: Z20.828 Contact with and (suspected) exposure to other viral communicable diseases (principal); Z11.59 Encounter for screening for other viral diseases | CPT/HCPCS: 87426; C9803 ==

== ENCOUNTER → 2022-03-03 | Outpatient (CLI) | payer MEDICARE, OTHER | LOC: M PLALAB 11:45 | PROVIDERS: ATTEND Physician Assistant | DX: M79.672 Pain in left foot (principal) ==

== ENCOUNTER → 2022-05-12 | Outpatient (CLI) | payer MEDICARE, OTHER ==
[2022-05-12 13:51] LABS: CALCIUM LEVEL 11.3 MG/DL (8.8-10.2); CREATININE FOR GFR 1.38 MG/DL (0.55-1.30); GLOMERULAR FILTRATION RATE 39.6 (>39); POTASSIUM SERUM 4.9 MEQ/L (3.5-5.1)
== END ==
LOC: M LABDRWAD 11:41
PROVIDERS: ATTEND Internal Medicine Pulmonary Disease
DX: Z79.899 Other long term (current) drug therapy (principal); I27.29 Other secondary pulmonary hypertension

== ENCOUNTER → 2022-08-08 | Outpatient (REF) | payer MEDICARE, OTHER | LOC: M SFHCADAM 11:35 | PROVIDERS: ATTEND Family Medicine | DX: Z53.9 Procedure and treatment not carried out, unspecified reason (principal) ==

== ENCOUNTER → 2022-08-09 | Outpatient (REF) | payer MEDICARE, OTHER ==
[~2022-08-09] MED LIST changes: +ACET500P3 PO; +CEFD300C41 PO; +JANU100T PO; +METF500T13 PO; +SPIR50TA4 PO; +TORS20TA2 PO; +WARF-20 PO; +WARF-60 PO
[2022-08-09 16:23] LABS: CALCIUM LEVEL 9.6 MG/DL (8.3-10.6); CREATININE FOR GFR 1.24 MG/DL (0.55-1.30); GLOMERULAR FILTRATION RATE 44.8 (>39); POTASSIUM SERUM 4.3 MMOL/L (3.5-5.1)
== END ==
LOC: M LABDRWAD 15:56
PROVIDERS: ATTEND Internal Medicine Pulmonary Disease
DX: I27.29 Other secondary pulmonary hypertension (principal)

== ENCOUNTER → 2022-08-09 | Outpatient (REF) | payer MEDICARE, OTHER ==
[2022-08-09 16:24] LABS: ALBUMIN 3.7 G/DL (3.2-5.2); BILIRUBIN,TOTAL 0.3 MG/DL (0.3-1.2); CALCIUM LEVEL 9.7 MG/DL (8.3-10.6); CREATININE FOR GFR 1.24 MG/DL (0.55-1.30); GLOMERULAR FILTRATION RATE 44.8 (>39); POTASSIUM SERUM 4.5 MMOL/L (3.5-5.1); TOTAL PROTEIN 6.9 G/DL (5.7-8.2)
[2022-08-09 16:49] LABS: HEMOGLOBIN A1c 7.6 % (4.0-6.0)
== END ==
LOC: M LABDRWAD 15:54
PROVIDERS: ATTEND Family Medicine
DX: E11.69 Type 2 diabetes mellitus with other specified complication (principal)

== ENCOUNTER 2022-09-13 11:25 | Observation (INO) | payer MEDICARE, OTHER ==
[~2022-09-13] VITALS: Ht 170.2 cm; Wt 88.6 kg
[~2022-09-13 11:25] MED LIST changes: -ACET500P3 PO; -CEFD300C41 PO; -JANU100T PO; -METF500T13 PO; -SPIR50TA4 PO; -TORS20TA2 PO; -WARF-20 PO; -WARF-60 PO
[2022-09-13] MEDS ORDERED: WARF-60 PO (11:56)
[2022-09-13] MEDS ORDERED: TORS20TA2 PO (11:56)
[2022-09-13] MEDS ORDERED: PANT40TA29 PO (11:56)
[2022-09-13] MEDS ORDERED: JANU100T PO (11:56)
[2022-09-13] MEDS ORDERED: SPIR50TA4 PO (11:56)
[2022-09-13] MEDS ORDERED: METF500T13 PO (11:56)
[2022-09-13] MEDS ORDERED: ACET500P3 PO (11:56)
[2022-09-13 12:46] LABS: BASO # 0.1 10^3/uL (0.0-0.2); BASO % 0.5 % (0.0-1.0); EOS # 0.3 10^3/uL (0.0-0.5); EOS % 2.7 % (0.0-3.0); HEMATOCRIT 41.3 % (36.0-47.0); HEMOGLOBIN 12.6 g/dl (12.0-15.5); LYMPH # 2.7 10^3/uL (1.5-5.0); LYMPH % 24.5 % (24.0-44.0); MEAN CORPUSCULAR HEMOGLOBIN 25.2 pg (27.0-33.0); MEAN CORPUSCULAR HGB CONC 30.5 g/dl (32.0-36.5); MEAN CORPUSCULAR VOLUME 82.6 fl (80.0-96.0); MONO # 0.7 10^3/uL (0.0-0.8); NEUTROPHILS # 7.2 10^3/uL (1.5-8.5); NEUTROPHILS % 65.9 % (36.0-66.0); PLATELET COUNT, AUTOMATED 332 10^3/uL (150-450); WHITE BLOOD COUNT 10.9 10^3/uL (4.0-10.0)
[2022-09-13 13:17] LABS: LIPASE 77 U/L (12-53)
[2022-09-13 14:01] LABS: ALBUMIN 3.7 G/DL (3.2-5.2); ALKALINE PHOSPHATASE 85 U/L (46-116); ALT/SGPT 13 U/L (7.0-40); AST/SGOT 17 U/L (<34); BILIRUBIN,DIRECT < 0.1 MG/DL (<0.4); BILIRUBIN,TOTAL 0.4 MG/DL (0.3-1.2); BLOOD UREA NITROGEN 21 MG/DL (9-23); CALCIUM LEVEL 9.7 MG/DL (8.3-10.6); CARBON DIOXIDE LEVEL 27 MMOL/L (20-31); CHLORIDE LEVEL 105 MMOL/L (98-107); CREATININE FOR GFR 1.25 MG/DL (0.55-1.30); GLOMERULAR FILTRATION RATE 44.2 (>39); GLUCOSE, FASTING 123 MG/DL (74-106); SODIUM LEVEL 141 MMOL/L (136-145)
[2022-09-13] MEDS ORDERED: ISOVUE-370 76% 100ML VIAL As Ordered ONE (14:49)
[2022-09-13] MEDS ORDERED: cefTRIAXone SOD 1 GM in D5W MINI-BAG PLUS 50 ML IV ONE (16:40)
[2022-09-13] MEDS ORDERED: WARFARIN SOD 3MG TAB PO SCH (17:00)
[2022-09-13] MEDS ORDERED: NS 1,000 ML IV SCH (18:00)
[2022-09-13 18:12] LABS: RSV AMPLIFICATION NEGATIVE (NEGATIVE)
[2022-09-13] MEDS ORDERED: WARF-20 PO (18:13)
[2022-09-13] MEDS ORDERED: ACET500T15 PO (18:13)
[2022-09-13] MEDS ORDERED: HOME MED LIST COMPLETE! XX SCH (18:15)
[2022-09-13] MEDS ORDERED: DEXTROSE 50% 50ML SYRINGE IV PRN (18:55)
[2022-09-13] MEDS ORDERED: GLUCOSE 4GM CHEW TABLET PO PRN (18:55)
[2022-09-13] MEDS ORDERED: GLUCAGON INJ 1MG VIAL SC PRN (18:55)
[2022-09-13 19:25] LABS: INR 2.43; PROTHROMBIN TIME 26.8 SECONDS (12.5-14.5)
[2022-09-13 21:00] VITALS: BP 149/80
[2022-09-13] MEDS ORDERED: PANTOPRAZOLE 40MG TAB (PROTONIX) PO SCH (21:00)
[2022-09-13] MEDS ORDERED: INSULIN LISPRO (NovoLOG) PER UNIT SC SCH (21:00)
[2022-09-13 21:01] LABS: TOTAL PROTEIN 7.2 G/DL (5.7-8.2)
[2022-09-13] MEDS: ACETAMINOPHEN 500 MG TAB PO PRN (21:34)
[2022-09-14 06:00] VITALS: BP 147/75
[2022-09-14] MEDS: ACETAMINOPHEN 500 MG TAB PO PRN (06:24)
[2022-09-14 06:29] LABS: BASO % 0.4 % (0.0-1.0); EOS # 0.3 10^3/uL (0.0-0.5); HEMATOCRIT 36.7 % (36.0-47.0); HEMOGLOBIN 11.1 g/dl (12.0-15.5); LYMPH # 2.2 10^3/uL (1.5-5.0); LYMPH % 27.8 % (24.0-44.0); MEAN CORPUSCULAR HEMOGLOBIN 25.3 pg (27.0-33.0); MEAN CORPUSCULAR HGB CONC 30.2 g/dl (32.0-36.5); MEAN CORPUSCULAR VOLUME 83.8 fl (80.0-96.0); MONO # 0.6 10^3/uL (0.0-0.8); MONO % 7.3 % (2.0-8.0); NEUTROPHILS # 4.8 10^3/uL (1.5-8.5); NEUTROPHILS % 60.2 % (36.0-66.0); PLATELET COUNT, AUTOMATED 297 10^3/uL (150-450); RED BLOOD COUNT 4.38 10^6/uL (4.00-5.40)
[2022-09-14 06:35] LABS: INR 2.51; PROTHROMBIN TIME 27.5 SECONDS (12.5-14.5)
[2022-09-14 06:57] LABS: CALCIUM LEVEL 8.9 MG/DL (8.3-10.6); CREATININE FOR GFR 1.41 MG/DL (0.55-1.30); GLOMERULAR FILTRATION RATE 38.5 (>39); MAGNESIUM LEVEL 1.7 MG/DL (1.8-2.4); PHOSPHORUS LEVEL 3.1 MG/DL (2.4-5.1)
[2022-09-14] MEDS ORDERED: MAGNESIUM OXIDE 400MG TAB (MAG-OX) PO ONE (07:20)
[2022-09-14] MEDS: INSULIN LISPRO (NovoLOG) PER UNIT SC SCH ×2 (07:30→12:00)
[2022-09-14] MEDS ORDERED: ENOXAPARIN 40MG/0.4ML SYRINGE (J1650 PER 10MG) SC SCH (09:00)
[2022-09-14] MEDS ORDERED: FLUBLOK(EGG FREE)(QUAD)INFLUENZA VACC 0.5ML SYRINGE 18YRS & OLDER IM.IMMUN ONE (09:00)
[2022-09-14] MEDS ORDERED: TORSEMIDE 20 MG TAB PO SCH (09:00)
[2022-09-14] MEDS ORDERED: SPIRONOLACTONE 50 MG TAB PO SCH (09:00)
[2022-09-14] MEDS ORDERED: NS 1,000 ML IV SCH (11:35)
[2022-09-14 14:00] VITALS: BP 108/82
[2022-09-14 14:28] LABS: CALCIUM LEVEL 8.9 MG/DL (8.3-10.6); CREATININE FOR GFR 1.11 MG/DL (0.55-1.30); GLOMERULAR FILTRATION RATE 50.7 (>39); POTASSIUM SERUM 4.4 MMOL/L (3.5-5.1)
[2022-09-14] MEDS ORDERED: CEFD300C41 PO (15:55)
[2022-09-14] MEDS ORDERED: cefTRIAXone SOD 1 GM in D5W MINI-BAG PLUS 50 ML IV SCH (17:00)
[2022-09-14] MEDS ORDERED: WARFARIN SOD 4MG TAB PO SCH (17:00)
[2022-09-15] MEDS ORDERED: FLUBLOK(EGG FREE)(QUAD)INFLUENZA VACC 0.5ML SYRINGE 18YRS & OLDER IM.IMMUN ONE (09:00)
[2022-09-17] MEDS ORDERED: WARFARIN SOD 3MG TAB PO SCH (17:00)
== END 2022-09-14 16:50 | disposition home or self-care (01) ==
LOC: M ED 11:25 → EDBD 11:25 → M ED INP 11:26 → ENRESERV 19:19 → M MSPAV 20:18
PROVIDERS: ADMIT Internal Medicine; ATTEND Internal Medicine
DX: N39.0 Urinary tract infection, site not specified (principal); D72.829 Elevated white blood cell count, unspecified; R10.9 Unspecified abdominal pain; N18.30 Chronic kidney disease, stage 3 unspecified; K21.9 Gastro-esophageal reflux disease without esophagitis; E11.9 Type 2 diabetes mellitus without complications; Z86.718 Personal history of other venous thrombosis and embolism; Z86.711 Personal history of pulmonary embolism; G51.0 Bell's palsy; J90 Pleural effusion, not elsewhere classified; Z79.84 Long term (current) use of oral hypoglycemic drugs; Z79.01 Long term (current) use of anticoagulants; Z79.899 Other long term (current) drug therapy; Z88.8 Allergy status to other drugs, medicaments and biological substances
CPT/HCPCS: 36415; 74177; 76775; 76857; 80048; 80076; 81001; 83605; 83690; 83735; 84100; 85025; 85610; 87088; 87186; 87631; 93005; 93041; 96361; 96365; 99285; G0378; J0696; Q9967

== ENCOUNTER → 2022-10-11 | Outpatient (CLI) | payer MEDICARE, OTHER ==
[~2022-10-11] MED LIST changes: +ACET500P3 PO; +CEFD300C41 PO; +JANU100T PO; +METF500T13 PO; +SPIR50TA4 PO; +TORS20TA2 PO; +WARF-20 PO; +WARF-60 PO
== END ==
LOC: M SOG 08:04
PROVIDERS: ATTEND Orthopaedic Surgery Adult Reconstructive Orthopaedic Surgery
DX: M17.11 Unilateral primary osteoarthritis, right knee (principal)

== ENCOUNTER → 2022-11-29 | Outpatient (REF) | payer MEDICARE, OTHER | LOC: M SFHCADAM 09:31 | PROVIDERS: ATTEND Family Medicine | DX: Z79.01 Long term (current) use of anticoagulants (principal) ==

== ENCOUNTER → 2022-11-29 | Outpatient (REF) | payer MEDICARE, OTHER ==
[2022-11-29 14:36] LABS: CREATININE FOR GFR 1.24 MG/DL (0.55-1.30); GLOMERULAR FILTRATION RATE 44.7 (>39); POTASSIUM SERUM 4.8 MMOL/L (3.5-5.1)
== END ==
LOC: M LABDRWAD 12:47
PROVIDERS: ATTEND Internal Medicine Pulmonary Disease
DX: I27.29 Other secondary pulmonary hypertension (principal)

== ENCOUNTER 2022-12-16 14:02 | Emergency (ER) | payer MEDICARE, OTHER ==
[~2022-12-16] VITALS: Ht 167.6 cm; Wt 84.4 kg
[2022-12-16 14:47] LABS: BASO % 0.4 % (0.0-1.0); EOS # 0.3 10^3/uL (0.0-0.5); EOS % 2.8 % (0.0-3.0); HEMATOCRIT 40.5 % (36.0-47.0); HEMOGLOBIN 12.3 g/dl (12.0-15.5); LYMPH # 2.3 10^3/uL (1.5-5.0); MEAN CORPUSCULAR HEMOGLOBIN 24.9 pg (27.0-33.0); MEAN CORPUSCULAR HGB CONC 30.4 g/dl (32.0-36.5); MEAN CORPUSCULAR VOLUME 82.2 fl (80.0-96.0); MONO # 0.6 10^3/uL (0.0-0.8); MONO % 6.9 % (2.0-8.0); NEUTROPHILS # 5.9 10^3/uL (1.5-8.5); NEUTROPHILS % 64.5 % (36.0-66.0); PLATELET COUNT, AUTOMATED 334 10^3/uL (150-450); RED BLOOD COUNT 4.93 10^6/uL (4.00-5.40); WHITE BLOOD COUNT 9.2 10^3/uL (4.0-10.0)
[2022-12-16 15:14] LABS: LIPASE 78 U/L (12-53)
[2022-12-16 15:16] LABS: ALBUMIN 3.5 G/DL (3.2-5.2); ALKALINE PHOSPHATASE 77 U/L (46-116); ALT/SGPT 14 U/L (7.0-40); AST/SGOT 15 U/L (<34); BILIRUBIN,DIRECT < 0.1 MG/DL (<0.4); BILIRUBIN,TOTAL 0.2 MG/DL (0.3-1.2); BLOOD UREA NITROGEN 27 MG/DL (9-23); CALCIUM LEVEL 9.2 MG/DL (8.3-10.6); CARBON DIOXIDE LEVEL 27 MMOL/L (20-31); CHLORIDE LEVEL 107 MMOL/L (98-107); CK-MB VALUE MASS < 1.0 NG/ML (<3.6); CREATININE FOR GFR 1.47 MG/DL (0.55-1.30); GLOMERULAR FILTRATION RATE 36.7 (>39); GLUCOSE, FASTING 202 MG/DL (74-106); POTASSIUM SERUM 3.9 MMOL/L (3.5-5.1); SODIUM LEVEL 140 MMOL/L (136-145); TOTAL PROTEIN 6.8 G/DL (5.7-8.2)
[2022-12-16 15:18] LABS: THYROID STIMULATING HORMONE 4.455 uIU/ML (0.55-4.78)
[2022-12-16 15:22] LABS: CPK CREATINE PHOSPHOKINASE 34 U/L (34-145); MB/CK RELATIVE INDEX 2.94 (< OR =4)
[2022-12-16 15:37] LABS: INR 2.54; PROTHROMBIN TIME 27.8 SECONDS (12.5-14.5)
[2022-12-16 16:06] LABS: CK-MB VALUE MASS < 1.0 NG/ML (<3.6)
[2022-12-16 16:08] LABS: CPK CREATINE PHOSPHOKINASE 27 U/L (34-145)
[2022-12-16 16:53] VITALS: BP 163/70
== END 2022-12-16 17:01 | disposition home or self-care (01) ==
LOC: M ED 14:02
DX: R07.9 Chest pain, unspecified (principal); K21.9 Gastro-esophageal reflux disease without esophagitis; E11.9 Type 2 diabetes mellitus without complications; Z86.718 Personal history of other venous thrombosis and embolism; Z79.4 Long term (current) use of insulin; Z79.01 Long term (current) use of anticoagulants; Z88.6 Allergy status to analgesic agent

== ENCOUNTER → 2022-12-26 | Outpatient (REF) | payer MEDICARE, OTHER | LOC: M SFHCADAM 15:41 | PROVIDERS: ATTEND Family Medicine | DX: Z79.01 Long term (current) use of anticoagulants (principal) ==

== ENCOUNTER → 2023-01-03 | Outpatient (CLI) | payer MEDICARE, OTHER | LOC: M ADAMS 12:10 | PROVIDERS: ATTEND Family Medicine | DX: J84.10 Pulmonary fibrosis, unspecified (principal); K44.9 Diaphragmatic hernia without obstruction or gangrene ==

== ENCOUNTER → 2023-01-29 | Outpatient (REF) | payer MEDICARE, OTHER ==
[2023-01-29 15:30] LABS: INR 1.56
== END ==
LOC: M SFHCADAM 14:06
PROVIDERS: ATTEND Family Medicine
DX: Z79.01 Long term (current) use of anticoagulants (principal)

== ENCOUNTER → 2023-03-12 | Outpatient (REF) | payer MEDICARE, OTHER ==
[2023-03-12 18:53] LABS: CALCIUM LEVEL 9.4 MG/DL (8.3-10.6); CREATININE FOR GFR 1.39 MG/DL (0.55-1.30); GLOMERULAR FILTRATION RATE 39.1 (>39); POTASSIUM SERUM 4.6 MMOL/L (3.5-5.1)
== END ==
LOC: M LABDRWAD 16:32
PROVIDERS: ATTEND Internal Medicine Pulmonary Disease
DX: Z79.01 Long term (current) use of anticoagulants (principal)

== ENCOUNTER → 2023-04-05 | Outpatient (REF) | payer MEDICARE, OTHER ==
[2023-04-05 21:33] LABS: ALBUMIN 3.7 G/DL (3.2-5.2); ALKALINE PHOSPHATASE 81 U/L (46-116); ALT/SGPT 13 U/L (7.0-40); AST/SGOT < 8 U/L (<34); BILIRUBIN,TOTAL 0.2 MG/DL (0.3-1.2); BLOOD UREA NITROGEN 37 MG/DL (9-23); CALCIUM LEVEL 9.3 MG/DL (8.3-10.6); CARBON DIOXIDE LEVEL 28 MMOL/L (20-31); CHLORIDE LEVEL 100 MMOL/L (98-107); CREATININE FOR GFR 1.56 MG/DL (0.55-1.30); GLOMERULAR FILTRATION RATE 34.3 (>39); GLUCOSE, FASTING 199 MG/DL (74-106); POTASSIUM SERUM 3.9 MMOL/L (3.5-5.1); SODIUM LEVEL 139 MMOL/L (136-145); TOTAL PROTEIN 7.3 G/DL (5.7-8.2)
[2023-04-05 22:12] LABS: HEMOGLOBIN A1c 7.2 % (4.0-6.0)
== END ==
LOC: M SFHCADAM 14:59
PROVIDERS: ATTEND Physician Assistant
DX: E11.69 Type 2 diabetes mellitus with other specified complication (principal)

== ENCOUNTER → 2023-05-23 | Outpatient (REF) | payer MEDICARE, OTHER ==
[~2023-05-23] MED LIST changes: -CEFD300C41 PO; +CEFD300C42 PO
[2023-05-23 16:41] LABS: INR 2.11; PROTHROMBIN TIME 23.1 SECONDS (12.5-14.5)
== END ==
LOC: M SFHCADAM 12:06
PROVIDERS: ATTEND Physician Assistant
DX: Z79.01 Long term (current) use of anticoagulants (principal)

== ENCOUNTER → 2023-07-10 | Outpatient (REF) | payer MEDICARE, OTHER ==
[~2023-07-10] MED LIST changes: +CEFD1CAP9 PO; -CEFD300C42 PO
[2023-07-10 16:43] LABS: CALCIUM LEVEL 10.3 MG/DL (8.3-10.6); CREATININE FOR GFR 1.35 MG/DL (0.55-1.30); GLOMERULAR FILTRATION RATE 40.5 (>39); POTASSIUM SERUM 4.5 MMOL/L (3.5-5.1)
== END ==
LOC: M LABDRWAD 15:53
PROVIDERS: ATTEND Internal Medicine Pulmonary Disease
DX: Z79.01 Long term (current) use of anticoagulants (principal)

== ENCOUNTER → 2023-07-18 | Outpatient (REF) | payer MEDICARE, OTHER | LOC: M SFHCADAM 16:09 | PROVIDERS: ATTEND Physician Assistant | DX: J06.9 Acute upper respiratory infection, unspecified (principal) ==

== ENCOUNTER → 2023-07-27 | Outpatient (REF) | payer MEDICARE, OTHER | LOC: M SFHCPLAZ 17:02 | PROVIDERS: ATTEND Family Medicine | DX: Z53.9 Procedure and treatment not carried out, unspecified reason (principal) ==

== ENCOUNTER 2023-08-21 20:15 | Emergency (ER) | payer MEDICARE ==
[~2023-08-21] VITALS: Ht 170.2 cm; Wt 81.8 kg
[2023-08-21 21:00] LABS: BASO # 0.1 10^3/uL (0.0-0.2); BASO % 0.4 % (0.0-1.0); EOS # 0.2 10^3/uL (0.0-0.5); EOS % 1.4 % (0.0-3.0); HEMOGLOBIN 11.3 g/dl (12.0-15.5); LYMPH # 3.6 10^3/uL (1.5-5.0); LYMPH % 27.1 % (24.0-44.0); MEAN CORPUSCULAR HEMOGLOBIN 23.3 pg (27.0-33.0); MEAN CORPUSCULAR HGB CONC 29.7 g/dl (32.0-36.5); MEAN CORPUSCULAR VOLUME 78.5 fl (80.0-96.0); MONO # 0.8 10^3/uL (0.0-0.8); MONO % 6.3 % (2.0-8.0); NEUTROPHILS # 8.6 10^3/uL (1.5-8.5); NEUTROPHILS % 64.5 % (36.0-66.0); RED BLOOD COUNT 4.84 10^6/uL (4.00-5.40); WHITE BLOOD COUNT 13.4 10^3/uL (4.0-10.0)
[2023-08-21 21:12] LABS: PLATELET COUNT, AUTOMATED 260 10^3/uL (150-450)
[2023-08-21 21:21] LABS: LIPASE 72 U/L (12-53)
[2023-08-21 21:22] LABS: CK-MB VALUE MASS < 1.0 NG/ML (<3.6)
[2023-08-21 21:26] LABS: ALBUMIN 3.4 G/DL (3.2-5.2); ALKALINE PHOSPHATASE 82 U/L (46-116); ALT/SGPT 12 U/L (7.0-40); AST/SGOT 18 U/L (<34); BILIRUBIN,DIRECT < 0.1 MG/DL (<0.4); BILIRUBIN,TOTAL 0.3 MG/DL (0.3-1.2); BLOOD UREA NITROGEN 28 MG/DL (9-23); CARBON DIOXIDE LEVEL 26 MMOL/L (20-31); CHLORIDE LEVEL 104 MMOL/L (98-107); CPK CREATINE PHOSPHOKINASE 46 U/L (34-145); CREATININE FOR GFR 1.56 MG/DL (0.55-1.30); GLOMERULAR FILTRATION RATE 34.2 (>39); GLUCOSE, FASTING 107 MG/DL (74-106); MB/CK RELATIVE INDEX 2.17 (< OR =4); POTASSIUM SERUM 4.1 MMOL/L (3.5-5.1); SODIUM LEVEL 140 MMOL/L (136-145); THYROID STIMULATING HORMONE 7.881 uIU/ML (0.55-4.78); TOTAL PROTEIN 7.1 G/DL (5.7-8.2)
[2023-08-21 23:20] LABS: CK-MB VALUE MASS < 1.0 NG/ML (<3.6)
[2023-08-21 23:22] LABS: CPK CREATINE PHOSPHOKINASE 35 U/L (34-145); MB/CK RELATIVE INDEX 2.85 (< OR =4)
[2023-08-22] MEDS ORDERED: FOSFOMYCIN TROMETHAMINE 3 GM POWDER PACKET (MONUROL) PO ONE (00:35)
[2023-08-22 01:00] VITALS: BP 132/90; TEMP 98; O2SAT 95
== END 2023-08-22 01:41 | disposition home or self-care (01) ==
LOC: M ED 20:15
DX: R07.9 Chest pain, unspecified (principal); N39.0 Urinary tract infection, site not specified; I44.4 Left anterior fascicular block; K21.9 Gastro-esophageal reflux disease without esophagitis; E11.9 Type 2 diabetes mellitus without complications; F32.A Depression, unspecified; Z79.84 Long term (current) use of oral hypoglycemic drugs; Z79.01 Long term (current) use of anticoagulants; Z86.718 Personal history of other venous thrombosis and embolism; Z88.6 Allergy status to analgesic agent; Z88.8 Allergy status to other drugs, medicaments and biological substances; Z79.2 Long term (current) use of antibiotics; Z79.899 Other long term (current) drug therapy; K44.9 Diaphragmatic hernia without obstruction or gangrene
CPT/HCPCS: 36415; 71045; 71046; 71250; 80048; 80053; 80076; 81001; 82550; 82553; 83690; 83880; 84443; 84484; 85025; 85379; 85610; 87086; 87635; 93005; 93041; 94760; 99285; G0463

== ENCOUNTER → 2023-08-21 | Outpatient (CLI) | payer MEDICARE | LOC: M ADAMS 14:37 | PROVIDERS: ATTEND Family Medicine | DX: R07.89 Other chest pain (principal); K44.9 Diaphragmatic hernia without obstruction or gangrene ==

== ENCOUNTER → 2023-08-21 | Outpatient (REF) | payer MEDICARE ==
[2023-08-21 16:44] LABS: BASO # 0.1 10^3/uL (0.0-0.2); BASO % 0.3 % (0.0-1.0); EOS # 0.2 10^3/uL (0.0-0.5); EOS % 1.6 % (0.0-3.0); HEMATOCRIT 43.7 % (36.0-47.0); HEMOGLOBIN 12.7 g/dl (12.0-15.5); LYMPH # 3.8 10^3/uL (1.5-5.0); LYMPH % 26.2 % (24.0-44.0); MEAN CORPUSCULAR HEMOGLOBIN 23.3 pg (27.0-33.0); MEAN CORPUSCULAR HGB CONC 29.1 g/dl (32.0-36.5); MEAN CORPUSCULAR VOLUME 80.3 fl (80.0-96.0); MONO # 0.9 10^3/uL (0.0-0.8); MONO % 6.1 % (2.0-8.0); NEUTROPHILS # 9.5 10^3/uL (1.5-8.5); NEUTROPHILS % 65.5 % (36.0-66.0); PLATELET COUNT, AUTOMATED 366 10^3/uL (150-450); RED BLOOD COUNT 5.44 10^6/uL (4.00-5.40); WHITE BLOOD COUNT 14.6 10^3/uL (4.0-10.0)
[2023-08-21 16:52] LABS: ALBUMIN 3.8 G/DL (3.2-5.2); ALKALINE PHOSPHATASE 94 U/L (46-116); ALT/SGPT 10 U/L (7.0-40); AST/SGOT 9 U/L (<34); BILIRUBIN,TOTAL 0.4 MG/DL (0.3-1.2); BLOOD UREA NITROGEN 26 MG/DL (9-23); CALCIUM LEVEL 10.3 MG/DL (8.3-10.6); CARBON DIOXIDE LEVEL 30 MMOL/L (20-31); CHLORIDE LEVEL 100 MMOL/L (98-107); CK-MB VALUE MASS < 1.0 NG/ML (<3.6); CPK CREATINE PHOSPHOKINASE 42 U/L (34-145); CREATININE FOR GFR 1.41 MG/DL (0.55-1.30); GLOMERULAR FILTRATION RATE 38.4 (>39); GLUCOSE, FASTING 134 MG/DL (74-106); MB/CK RELATIVE INDEX 2.38 (< OR =4); POTASSIUM SERUM 4.2 MMOL/L (3.5-5.1); SODIUM LEVEL 137 MMOL/L (136-145); TOTAL PROTEIN 8.2 G/DL (5.7-8.2)
== END ==
LOC: M SFHCADAM 13:44
PROVIDERS: ATTEND Family Medicine
DX: R07.89 Other chest pain (principal); Z79.01 Long term (current) use of anticoagulants

== ENCOUNTER → 2023-09-03 | Outpatient (REF) | payer MEDICARE ==
[2023-09-03 17:02] LABS: BASO % 0.3 % (0.0-1.0); EOS # 0.3 10^3/uL (0.0-0.5); EOS % 2.5 % (0.0-3.0); HEMATOCRIT 35.2 % (36.0-47.0); HEMOGLOBIN 10.4 g/dl (12.0-15.5); LYMPH # 2.9 10^3/uL (1.5-5.0); LYMPH % 25.9 % (24.0-44.0); MEAN CORPUSCULAR HGB CONC 29.5 g/dl (32.0-36.5); MEAN CORPUSCULAR VOLUME 81.3 fl (80.0-96.0); MONO # 0.8 10^3/uL (0.0-0.8); MONO % 7.1 % (2.0-8.0); NEUTROPHILS # 7.2 10^3/uL (1.5-8.5); NEUTROPHILS % 63.9 % (36.0-66.0); PLATELET COUNT, AUTOMATED 354 10^3/uL (150-450); RED BLOOD COUNT 4.33 10^6/uL (4.00-5.40); WHITE BLOOD COUNT 11.2 10^3/uL (4.0-10.0)
== END ==
LOC: M SFHCADAM 12:04
PROVIDERS: ATTEND Family Medicine
DX: Z79.01 Long term (current) use of anticoagulants (principal)

== ENCOUNTER → 2023-09-10 | Outpatient (REF) | payer MEDICARE | LOC: M SFHCADAM 12:38 | PROVIDERS: ATTEND Family Medicine | DX: Z79.01 Long term (current) use of anticoagulants (principal) ==

== ENCOUNTER → 2023-09-17 | Outpatient (REF) | payer MEDICARE ==
[2023-09-17 15:16] LABS: BASO # 0.1 10^3/uL (0.0-0.2); BASO % 0.4 % (0.0-1.0); EOS # 0.2 10^3/uL (0.0-0.5); EOS % 1.8 % (0.0-3.0); HEMATOCRIT 30.2 % (36.0-47.0); HEMOGLOBIN 8.7 g/dl (12.0-15.5); LYMPH # 2.6 10^3/uL (1.5-5.0); MEAN CORPUSCULAR HEMOGLOBIN 23.2 pg (27.0-33.0); MEAN CORPUSCULAR HGB CONC 28.8 g/dl (32.0-36.5); MEAN CORPUSCULAR VOLUME 80.5 fl (80.0-96.0); MONO # 0.6 10^3/uL (0.0-0.8); MONO % 5.3 % (2.0-8.0); NEUTROPHILS # 8.4 10^3/uL (1.5-8.5); NEUTROPHILS % 70.2 % (36.0-66.0); PLATELET COUNT, AUTOMATED 442 10^3/uL (150-450); RED BLOOD COUNT 3.75 10^6/uL (4.00-5.40)
[2023-09-17 15:49] LABS: CALCIUM LEVEL 9.3 MG/DL (8.3-10.6); CREATININE FOR GFR 1.38 MG/DL (0.55-1.30); GLOMERULAR FILTRATION RATE 39.4 (>39); POTASSIUM SERUM 4.6 MMOL/L (3.5-5.1)
== END ==
LOC: M SFHCADAM 12:13
PROVIDERS: ATTEND Family Medicine
DX: D64.9 Anemia, unspecified (principal); R93.89 Abnormal findings on diagnostic imaging of other specified body structures; Z79.01 Long term (current) use of anticoagulants

== ENCOUNTER → 2023-09-19 | Outpatient (CLI) | payer MEDICARE | LOC: M PLAIMG 09:21 | PROVIDERS: ATTEND Family Medicine | DX: R74.8 Abnormal levels of other serum enzymes (principal) ==

== ENCOUNTER → 2023-09-24 | Outpatient (REF) | payer MEDICARE ==
[2023-09-24 16:23] LABS: BASO # 0.1 10^3/uL (0.0-0.2); BASO % 0.4 % (0.0-1.0); EOS # 0.2 10^3/uL (0.0-0.5); EOS % 1.4 % (0.0-3.0); HEMATOCRIT 31.1 % (36.0-47.0); HEMOGLOBIN 8.9 g/dl (12.0-15.5); LYMPH # 2.7 10^3/uL (1.5-5.0); LYMPH % 21.4 % (24.0-44.0); MEAN CORPUSCULAR HEMOGLOBIN 22.7 pg (27.0-33.0); MEAN CORPUSCULAR HGB CONC 28.6 g/dl (32.0-36.5); MEAN CORPUSCULAR VOLUME 79.3 fl (80.0-96.0); MONO # 0.9 10^3/uL (0.0-0.8); MONO % 7.3 % (2.0-8.0); NEUTROPHILS # 8.5 10^3/uL (1.5-8.5); NEUTROPHILS % 68.2 % (36.0-66.0); PLATELET COUNT, AUTOMATED 476 10^3/uL (150-450); RED BLOOD COUNT 3.92 10^6/uL (4.00-5.40); WHITE BLOOD COUNT 12.5 10^3/uL (4.0-10.0)
== END ==
LOC: M SFHCADAM 13:45
PROVIDERS: ATTEND Family Medicine
DX: D50.0 Iron deficiency anemia secondary to blood loss (chronic) (principal); Z79.01 Long term (current) use of anticoagulants

== ENCOUNTER 2023-10-09 19:36 | Inpatient (IN) | payer MEDICARE, OTHER ==
[~2023-10-09] VITALS: Ht 167.6 cm; Wt 82.4 kg
[~2023-10-09 19:36] MED LIST changes: -ALBU8.5H INH; -ATOR80TA59 PO; -GLIP5TAB17 PO; -LATA1DRO OU; -LOVE0.6I2 SC; -WARF-23 PO; -WARF4TAB51 PO
[2023-10-09 21:24] LABS: BASO # 0.1 10^3/uL (0.0-0.2); BASO % 0.4 % (0.0-1.0); EOS # 0.2 10^3/uL (0.0-0.5); EOS % 1.6 % (0.0-3.0); HEMATOCRIT 31.7 % (36.0-47.0); HEMOGLOBIN 9.3 g/dl (12.0-15.5); LYMPH # 2.7 10^3/uL (1.5-5.0); LYMPH % 20.4 % (24.0-44.0); MEAN CORPUSCULAR HEMOGLOBIN 22.2 pg (27.0-33.0); MEAN CORPUSCULAR HGB CONC 29.3 g/dl (32.0-36.5); MEAN CORPUSCULAR VOLUME 75.8 fl (80.0-96.0); MONO # 0.8 10^3/uL (0.0-0.8); MONO % 5.9 % (2.0-8.0); NEUTROPHILS # 9.4 10^3/uL (1.5-8.5); NEUTROPHILS % 71.3 % (36.0-66.0); PLATELET COUNT, AUTOMATED 497 10^3/uL (150-450); RED BLOOD COUNT 4.18 10^6/uL (4.00-5.40); WHITE BLOOD COUNT 13.1 10^3/uL (4.0-10.0)
[2023-10-09 21:27] LABS: CK-MB VALUE MASS < 1.0 NG/ML (<3.6)
[2023-10-09 21:29] LABS: ALBUMIN 3.6 G/DL (3.2-5.2); ALKALINE PHOSPHATASE 98 U/L (46-116); ALT/SGPT 12 U/L (7.0-40); AST/SGOT 11 U/L (<34); BILIRUBIN,DIRECT < 0.1 MG/DL (<0.4); BILIRUBIN,TOTAL 0.2 MG/DL (0.3-1.2); BLOOD UREA NITROGEN 35 MG/DL (9-23); CALCIUM LEVEL 9.1 MG/DL (8.3-10.6); CARBON DIOXIDE LEVEL 25 MMOL/L (20-31); CHLORIDE LEVEL 105 MMOL/L (98-107); CREATININE FOR GFR 1.33 MG/DL (0.55-1.30); GLOMERULAR FILTRATION RATE 41.1 (>39); GLUCOSE, FASTING 225 MG/DL (74-106); POTASSIUM SERUM 4.3 MMOL/L (3.5-5.1); SODIUM LEVEL 137 MMOL/L (136-145); TOTAL PROTEIN 7.4 G/DL (5.7-8.2)
[2023-10-09 21:32] LABS: CPK CREATINE PHOSPHOKINASE 27 U/L (34-145)
[2023-10-09 21:43] LABS: RSV AMPLIFICATION NEGATIVE (NEGATIVE)
[2023-10-09 21:50] LABS: INR 1.13; PARTIAL THROMBOPLASTIN TIME 24.6 SECONDS (24.8-34.2); PROTHROMBIN TIME 14.1 SECONDS (12.5-14.5)
[2023-10-09] MEDS: ENOXAPARIN 100MG/1ML SYRINGE (J1650 PER 10MG) SC ONE (22:07)
[2023-10-09] MEDS ORDERED: WARF-23 PO (22:43)
[2023-10-09] MEDS ORDERED: WARF4TAB51 PO (22:43)
[2023-10-09] MEDS ORDERED: LATA1DRO OU (22:45)
[2023-10-09] MEDS ORDERED: ALBU8.5H INH (22:45)
[2023-10-09] MEDS ORDERED: GLIP5TAB17 PO (22:51)
[2023-10-09] MEDS ORDERED: HOME MED LIST COMPLETE! XX SCH (22:55)
[2023-10-10] VITALS (29 sets, daily range): BP systolic 106–144; BP diastolic 53–93; TEMP 97.4–97.7; O2SAT 90–100
[2023-10-10] MEDS: ACETAMINOPHEN TAB 650MG DOSE (2X325MG) PO ONE (02:17)
[2023-10-10 05:32] LABS: HEMATOCRIT 27.1 % (36.0-47.0); HEMOGLOBIN 7.9 g/dl (12.0-15.5); MEAN CORPUSCULAR HEMOGLOBIN 21.9 pg (27.0-33.0); MEAN CORPUSCULAR HGB CONC 29.2 g/dl (32.0-36.5); MEAN CORPUSCULAR VOLUME 75.1 fl (80.0-96.0); PLATELET COUNT, AUTOMATED 422 10^3/uL (150-450); RED BLOOD COUNT 3.61 10^6/uL (4.00-5.40); WHITE BLOOD COUNT 11.6 10^3/uL (4.0-10.0)
[2023-10-10 05:56] LABS: ALBUMIN 3.1 G/DL (3.2-5.2); ALKALINE PHOSPHATASE 83 U/L (46-116); ALT/SGPT 9 U/L (7.0-40); AST/SGOT < 8 U/L (<34); BILIRUBIN,TOTAL 0.2 MG/DL (0.3-1.2); BLOOD UREA NITROGEN 33 MG/DL (9-23); CALCIUM LEVEL 8.7 MG/DL (8.3-10.6); CARBON DIOXIDE LEVEL 27 MMOL/L (20-31); CHLORIDE LEVEL 108 MMOL/L (98-107); CREATININE FOR GFR 1.37 MG/DL (0.55-1.30); GLOMERULAR FILTRATION RATE 39.7 (>39); GLUCOSE, FASTING 82 MG/DL (74-106); MAGNESIUM LEVEL 1.8 MG/DL (1.8-2.4); SODIUM LEVEL 142 MMOL/L (136-145); TOTAL PROTEIN 6.3 G/DL (5.7-8.2)
[2023-10-10] MEDS ORDERED: ALBUTEROL 90 MCG/ACT 8GM HFA INHALER INH PRN (07:25)
[2023-10-10] MEDS ORDERED: GLUCOSE 4GM CHEW TABLET PO PRN (08:00)
[2023-10-10] MEDS ORDERED: DEXTROSE 50% 50ML SYRINGE IV PRN (08:00)
[2023-10-10] MEDS ORDERED: GLUCAGON INJ 1MG VIAL SC PRN (08:00)
[2023-10-10] MEDS: NICOTINE 21MG/24HR 1 EA TRANSDERMAL TD SCH (09:00)
[2023-10-10] MEDS: PANTOPRAZOLE 40MG VIAL IV SCH (09:33)
[2023-10-10] MEDS: ENOXAPARIN 80MG/0.8ML SYRINGE (J1650 PER 10MG) SC SCH (09:34)
[2023-10-10] MEDS ORDERED: HEPARIN DRIP 25,000 UNITS in IV 1 EA IV SCH (10:00)
[2023-10-10] MEDS: INSULIN LISPRO (NovoLOG) PER UNIT SC SCH ×2 (13:28→21:00)
[2023-10-10] MEDS: LORazepam 2 MG/ML 1ML VIAL IV ONE (13:28)
[2023-10-10 17:05] LABS: HEMOGLOBIN A1c 7.1 % (4.0-6.0)
[2023-10-10 17:47] LABS: HEMATOCRIT 27.9 % (36.0-47.0); HEMOGLOBIN 8.1 g/dl (12.0-15.5)
[2023-10-10] MEDS: LORazepam 1 MG TAB PO ONE (18:00)
[2023-10-10] MEDS ORDERED: SITagliptin 50 MG TAB (JANUVIA) PO SCH (21:00)
[2023-10-10] MEDS: ATORVASTATIN 20 MG TAB PO SCH (21:13)
[2023-10-10] MEDS: LATANOPROST 0.005% OPHTH SOLN 2.5 ML OU SCH (21:14)
[2023-10-10] MEDS: METOPROLOL TART 12.5 MG PER 1/2 TAB PO SCH (23:46)
[2023-10-11] VITALS (9 sets, daily range): BP systolic 102–138; BP diastolic 60–76; TEMP 96.6–97.7; O2SAT 92–98
[2023-10-11 05:36] LABS: BASO % 0.4 % (0.0-1.0); EOS # 0.2 10^3/uL (0.0-0.5); EOS % 2.7 % (0.0-3.0); HEMATOCRIT 27.9 % (36.0-47.0); HEMOGLOBIN 8.1 g/dl (12.0-15.5); LYMPH # 2.7 10^3/uL (1.5-5.0); MEAN CORPUSCULAR VOLUME 75.6 fl (80.0-96.0); MONO # 0.8 10^3/uL (0.0-0.8); MONO % 8.5 % (2.0-8.0); NEUTROPHILS # 5.2 10^3/uL (1.5-8.5); NEUTROPHILS % 58.1 % (36.0-66.0); PLATELET COUNT, AUTOMATED 397 10^3/uL (150-450); RED BLOOD COUNT 3.69 10^6/uL (4.00-5.40)
[2023-10-11 06:04] LABS: CALCIUM LEVEL 9.2 MG/DL (8.3-10.6); CHOLESTEROL RISK RATIO 4.9 (<5); CREATININE FOR GFR 1.2 MG/DL (0.55-1.30); GLOMERULAR FILTRATION RATE 46.3 (>39); LDL CHOLESTEROL 101.4 MG/DL (<100); POTASSIUM SERUM 4.5 MMOL/L (3.5-5.1)
[2023-10-11] MEDS ORDERED: LOVE0.6I2 SC (07:25)
[2023-10-11] MEDS ORDERED: ATOR80TA59 PO (13:39)
== END 2023-10-11 15:39 | disposition home or self-care (01) | DRG 175 ==
LOC: M ED 19:36 → M ED INP 23:56 → ENRESERV 10-10 00:51 → M PCU 10-10 01:37
PROVIDERS: ADMIT Internal Medicine; ATTEND Internal Medicine
DX: I26.93 Single subsegmental thrombotic pulmonary embolism without acute cor pulmonale (principal); I63.9 Cerebral infarction, unspecified; K92.2 Gastrointestinal hemorrhage, unspecified; D62 Acute posthemorrhagic anemia; M19.90 Unspecified osteoarthritis, unspecified site; K21.9 Gastro-esophageal reflux disease without esophagitis; I27.20 Pulmonary hypertension, unspecified; E11.22 Type 2 diabetes mellitus with diabetic chronic kidney disease; N18.30 Chronic kidney disease, stage 3 unspecified; E78.5 Hyperlipidemia, unspecified; F17.200 Nicotine dependence, unspecified, uncomplicated; Z96.642 Presence of left artificial hip joint; Z86.718 Personal history of other venous thrombosis and embolism; Z86.711 Personal history of pulmonary embolism; K44.9 Diaphragmatic hernia without obstruction or gangrene; Z85.828 Personal history of other malignant neoplasm of skin; H40.9 Unspecified glaucoma; Z79.899 Other long term (current) drug therapy; Z88.6 Allergy status to analgesic agent; Z88.8 Allergy status to other drugs, medicaments and biological substances; Z98.49 Cataract extraction status, unspecified eye

== ENCOUNTER → 2023-10-09 | Outpatient (CLI) | payer MEDICARE ==
[~2023-10-09] MED LIST changes: +ALBU8.5H INH; +GLIP5TAB17 PO; +ISOVUE-370 76% 100ML VIAL As Ordered ONE; +LATA1DRO OU; +WARF-23 PO; +WARF4TAB51 PO
== END ==
LOC: M RAD 15:30
PROVIDERS: ATTEND Family Medicine
DX: I26.93 Single subsegmental thrombotic pulmonary embolism without acute cor pulmonale (principal); R55 Syncope and collapse
CPT/HCPCS: 71275; Q9967

== ENCOUNTER → 2023-10-09 | Outpatient (REF) | payer MEDICARE ==
[~2023-10-09] MED LIST changes: +ATOR80TA59 PO; -ISOVUE-370 76% 100ML VIAL As Ordered ONE; +LOVE0.6I2 SC
[2023-10-09 17:23] LABS: ALBUMIN 3.5 G/DL (3.2-5.2); ALKALINE PHOSPHATASE 91 U/L (46-116); ALT/SGPT < 9 U/L (7.0-40); AST/SGOT 11 U/L (<34); BILIRUBIN,TOTAL 0.2 MG/DL (0.3-1.2); BLOOD UREA NITROGEN 38 MG/DL (9-23); CALCIUM LEVEL 9.3 MG/DL (8.3-10.6); CARBON DIOXIDE LEVEL 27 MMOL/L (20-31); CHLORIDE LEVEL 105 MMOL/L (98-107); CREATININE FOR GFR 1.41 MG/DL (0.55-1.30); GLOMERULAR FILTRATION RATE 38.4 (>39); GLUCOSE, FASTING 177 MG/DL (74-106); POTASSIUM SERUM 4.7 MMOL/L (3.5-5.1); SODIUM LEVEL 138 MMOL/L (136-145); THYROID STIMULATING HORMONE 2.732 uIU/ML (0.55-4.78); TOTAL PROTEIN 7.3 G/DL (5.7-8.2)
[2023-10-09 17:25] LABS: BASO # 0.1 10^3/uL (0.0-0.2); BASO % 0.4 % (0.0-1.0); EOS # 0.1 10^3/uL (0.0-0.5); EOS % 1.1 % (0.0-3.0); HEMATOCRIT 32.2 % (36.0-47.0); HEMOGLOBIN 9.3 g/dl (12.0-15.5); LYMPH # 2.5 10^3/uL (1.5-5.0); LYMPH % 19.6 % (24.0-44.0); MEAN CORPUSCULAR HEMOGLOBIN 22.1 pg (27.0-33.0); MEAN CORPUSCULAR HGB CONC 28.9 g/dl (32.0-36.5); MEAN CORPUSCULAR VOLUME 76.5 fl (80.0-96.0); MONO # 0.8 10^3/uL (0.0-0.8); MONO % 6.2 % (2.0-8.0); NEUTROPHILS # 9.3 10^3/uL (1.5-8.5); NEUTROPHILS % 72.3 % (36.0-66.0); PLATELET COUNT, AUTOMATED 527 10^3/uL (150-450); RED BLOOD COUNT 4.21 10^6/uL (4.00-5.40); WHITE BLOOD COUNT 12.8 10^3/uL (4.0-10.0)
== END ==
LOC: M SFHCADAM 14:45
PROVIDERS: ATTEND Family Medicine
DX: Z86.2 Personal history of diseases of the blood and blood-forming organs and certain disorders involving the immune mechanism (principal); R55 Syncope and collapse

== ENCOUNTER → 2023-10-11 | Outpatient (CLI) | payer MEDICARE ==
[~2023-10-11] MED LIST changes: +ALBU8.5H INH; +ATOR80TA59 PO; +ENOX80IN3 SQ; +GLIP5TAB17 PO; +LATA1DRO OU; +LOVE0.6I2 SC; +WARF-23; +WARF-23 PO; +WARF4TAB51 PO
== END ==
LOC: M EKG 15:56
PROVIDERS: ATTEND Internal Medicine
DX: I63.9 Cerebral infarction, unspecified (principal)

== ENCOUNTER → 2023-10-22 | Outpatient (REF) | payer MEDICARE ==
[2023-10-22 18:43] LABS: PERCENT SATURATION 3.6 % (13.2-45.0)
[2023-10-22 18:45] LABS: FERRITIN 9.1 NG/ML (7.3-270.7)
== END ==
LOC: M LAB REF 17:22
PROVIDERS: ATTEND Internal Medicine Nephrology
DX: N18.9 Chronic kidney disease, unspecified (principal); D63.1 Anemia in chronic kidney disease